=== PATIENT | female | born 1985 | race Caucasian/White ===

== ENCOUNTER 2016-02-14 09:46 | Emergency (ER) | payer OTHER, MEDICAID ==
[~2016-02-14] VITALS: Wt 58.0 kg
[~2016-02-14 09:46] MED LIST: BEN50 PO; PREN1TAB31 PO
--- NOTE | 2016-02-14 10:44 | RADRPT ---
PROCEDURE: US OB. CLINICAL INDICATION: Vaginal bleeding TECHNIQUE: Transabdominal and transvaginal views of the pelvis are available for review. COMPARISON: No prior studies are available for comparison. FINDINGS: There is a single intrauterine gestation with the crown-rump length measuring 0.4 cm, corresponding to a gestational age of 6 weeks and 1 day. There are Nabothian cysts in the cervix. The heart rate is noted at 105 bpm. The ovaries are normal in size and echogenicity. Normal Doppler flow is identified in both ovaries. The right ovary measures 2.9 x 2.1 x 2.0 cm. The left ovary measures 3.6 x 2.4 cm. There is no free fluid. RPTAT: AA IMPRESSION: Single live intrauterine with an estimated gestational age of 6 weeks and 1 day, based on ultrasound measurements. bradycardia and may be due to the early gestation. Follow-up is needed. ORIANA based on ultrasound measurements is 10/08/16. .Mu Vaughn MD, MD Date Time Electronically viewed and signed by .Mu Vaughn MD, on 02/14/2016 10:44 .S/
[2016-02-14 10:58] LABS: ADD UMIC YES; URINE BILIRUBIN (Dip) NEGATIVE (NEGATIVE); URINE BLOOD (Dip) TRACE (NEGATIVE); URINE COLOR LT. YELLOW (YELLOW); URINE GLUCOSE (Dip) NEGATIVE (NEGATIVE); URINE KETONES (Dip) NEGATIVE (NEGATIVE); URINE LEUKOCYTE ESTERASE (Dip) NEGATIVE (NEGATIVE); URINE NITRITE (Dip) NEGATIVE (NEGATIVE); URINE TOTAL PROTEIN (Dip) NEGATIVE (NEGATIVE); URINE UROBILINOGEN (Dip) 0.2 E.U./dL (0.1-1.0)
[2016-02-14 11:04] LABS: URINE RBCS 0-2 /HPF (0)
[2016-02-14 11:11] LABS: BASOPHILS % 0.3 % (0.0-2.0); EOSINOPHILS % 0.3 % (0.0-7.0); HEMATOCRIT 35.5 % (37.0-47.0); HEMOGLOBIN 11.7 g/dl (12.0-16.0); LYMPHOCYTES # 1.6 10^3/ul (0.8-2.9); LYMPHOCYTES % 18.6 % (15.0-51.0); MEAN CORPUSCULAR HEMOGLOBIN 26.3 pg (29.0-33.0); MEAN CORPUSCULAR VOLUME 79.7 fl (82.0-101.0); MEAN PLATELET VOLUME 7.5 fl (7.4-10.4); MONOCYTE # 0.7 10^3/ul (0.3-0.9); MONOCYTES % 7.8 % (0.0-11.0); NEUTROPHIL # 6.5 10^3/ul (1.6-7.5); PLATELET COUNT 339 10^3/UL (140-440); RED BLOOD COUNT 4.45 10^6/ul (4.20-5.40); RED CELL DISTRIBUTION WIDTH 20.3 % (11.5-14.5); UNCORRECTED WBC 8.9 10^3/ul (4.8-10.8); WHITE BLOOD COUNT 8.9 10^3/ul (4.8-10.8)
[2016-02-14 11:13] LABS: CONDITION 1; LH ANALYZER COMMENTS 1
--- NOTE | 2016-02-14 12:06 | ERD ---
ER Documentation Chief Complaint Date/Time DATE: 02/14/16 TIME: 12:02 Chief Complaint 8 wks spotting HPI 30-year-old female with no significant past medical history presents the ED as a A1 for pinkish vaginal spotting that occurred earlier today. States that she has slight achy type of generalized abdominal pain. Denies any fever, chills, nausea, vomiting, chest pain, shortness of breath, vaginal discharge. States that she does not have an G[facility]ER HELPER. States that she does have an appointment at a clinic on February 17, 2015. States that her LMP was on . ROS All systems reviewed and are negative except as per history of present illness. Medications Home Meds Active Scripts Diphenhydramine Hcl* (Benadryl*) 50 Mg Cap, 50 MG PO Q6 Y for ITCHING for 5 Days , CAP Prov:ISAI PATTEN 06/22/15 Reported Medications Vits #90-Iron Fum-FA ( Formula) 1 Each Tablet, 1 EACH PO DAILY 06/21/12 Allergies Allergies: Coded Allergies: azithromycin (Verified Allergy, Mild, RASH, 07/05/15) PMhx/Soc Medical and Surgical Hx: pt denies Surgical Hx History of Surgery: No Anesthesia Reaction: No Hx Neurological Disorder: No Hx Respiratory Disorders: No Hx Cardiac Disorders: No Hx Psychiatric Problems: No Hx Miscellaneous Medical Probl: Yes (VERTIGO) Hx Alcohol Use: No Hx Substance Use: No Hx Tobacco Use: No Smoking Status: Never smoker Physical Exam Vitals Vital Signs Date Time Temp Pulse Resp B/P Pulse Ox O2 Delivery O2 Flow Rate FiO2 02/14/16 12:25 120/78 02/14/16 09:49 98.6 98 20 127/72 100 Physical Exam Const: Kgx-iix-jyhvknzgm, well-nourished. In no acute distress. Head: Atraumatic, normocephalic Eyes: Normal Conjunctiva without injection. No purulent discharge. ENT: Normal external ear, nose. Moist oropharynx without tonsillar exudates. Non -erythematous pharynx. Uvula midline. No drooling. No trismus. Neck: No cervical midline tenderness. Full range of motion. No meningismus. No cervical lymphadenopathy. No JVD. Resp: Clear to auscultation bilaterally. No wheezing, rhonchi, rales, or crackles. No accessory muscle use. No retractions. Cardio: Regular rate and rhythm. No murmurs, rubs or gallops. Abd: Soft, nontender to palpation, non distended. Normal bowel sounds. No palpable masses. No rebound tenderness. No guarding. Negative McBurney's point. Negative psoas sign. Negative obturator sign. Skin: No petechiae or rashes Back: No midline tenderness. No CVA tenderness. Ext: No cyanosis, or edema. Neur: Awake and alert. Normal gait. Normal coordination. Psych: Normal Mood and Affect Result Diagram: 02/14/16 1040 Results 24 hrs Laboratory Tests Test 02/14/16 10:40 Basophils # 0.010^3/ul Basophils % 0.3% Beta HCG, Quantitative 36580.0mIU/ml Blood Morphology Comment Eosinophils # 0.010^3/ul Eosinophils % 0.3% Hematocrit 35.5% Hemoglobin 11.7g/dl Lymphocytes # 1.610^3/ul Lymphocytes % 18.6% Mean Corpuscular Hemoglobin 26.3pg Mean Corpuscular Hemoglobin Concent 33.0g/dl Mean Corpuscular Volume 79.7fl Mean Platelet Volume 7.5fl Monocytes # 0.710^3/ul Monocytes % 7.8% Neutrophils # 6.510^3/ul Neutrophils % 73.0% Nucleated Red Blood Cells # 0.010^3/ul Nucleated Red Blood Cells % 0.0/100WBC Platelet Count 62698^3/UL Red Blood Count 4.4510^6/ul Red Cell Distribution Width 20.3% Urine Bilirubin NEGATIVE Urine Clarity CLEAR Urine Color LT. YELLOW Urine Epithelial Cells OCCASIONAL Urine Glucose NEGATIVE% Urine Hemoglobin TRACE Urine Ketones NEGATIVE Urine Leukocyte Esterase NEGATIVE Urine Microscopic RBC 0-2/HPF Urine Microscopic WBC NONE SEEN/HPF Urine Nitrite NEGATIVE Urine Specific [place] 1.015 Urine Total Protein NEGATIVE Urine Urobilinogen 0.2 E.U./dL Urine pH 6.0 White Blood Count 8.910^3/ul Procedures/MDM 30-year-old female with no significant past medical history is a A1 presents to the ED complaining of slight pinkish vaginal spotting that occurred earlier this morning. Patient is afebrile and nontoxic-appearing. Patient has normal vital signs. An ultrasound, beta-hCG, CBC, type and RH, UA was ordered to evaluate patient. CBC: No evidence of severe infection or anemia Urine: No elevation in nitrites, leukocyte esterase, hematuria. No evidence of UTI Rh: O positive. No indication for Rhogam at this time. beta Hc.0 PROCEDURE: US OB. CLINICAL INDICATION: Vaginal bleeding TECHNIQUE: Transabdominal and transvaginal views of the pelvis are available for review. COMPARISON: No prior studies are available for comparison. FINDINGS: There is a single intrauterine gestation with the crown-rump length measuring 0.4 cm, corresponding to a gestational age of 6 weeks and 1 day. There are Nabothian cysts in the cervix. The heart rate is noted at 105 bpm. The ovaries are normal in size and echogenicity. Normal Doppler flow is identified in both ovaries. The right ovary measures 2.9 x 2.1 x 2.0 cm. The left ovary measures 3.6 x 2.4 cm. There is no free fluid. RPTAT: AA IMPRESSION: Single live intrauterine with an estimated gestational age of 6 weeks and 1 day, based on ultrasound measurements. bradycardia and may be due to the early gestation. Follow-up is needed. ORIANA based on ultrasound measurements is 10/08/16. Patient's bleeding symptoms have stabilized while in the department. Low suspicion for symptomatic anemia, ectopic , sepsis, PID, appendicitis, ovarian torsion, tubo-ovarian abscess, surgical abdomen, or other emergent conditions. Patient was educated that there is a risk for threatened . Patient to follow up with G[facility]ER HELPER in 2 days for further evaluation and treatment. Patient is to return sooner to the ED for any worsening symptoms. Patient's questions were answered. Patient understood and agreed with discharge plan. Departure Diagnosis: Primary Impression: Vaginal bleeding before 22 weeks gestation Condition: Stable Patient Instructions: Vaginal Bleed in Referrals: [facility] YOU HAVE RECEIVED A MEDICAL SCREENING EXAM AND THE RESULTS INDICATE THAT YOU DO NOT HAVE A CONDITION THAT REQUIRES URGENT TREATMENT IN THE EMERGENCY DEPARTMENT. FURTHER EVALUATION AND TREATMENT OF YOUR CONDITION CAN WAIT UNTIL YOU ARE SEEN IN YOUR DOCTORS OFFICE WITHIN THE NEXT 1-2 DAYS. IT IS YOUR RESPONSIBILITY TO MAKE AN APPOINTMENT FOR FOLOW-UP CARE. IF YOU HAVE A PRIMARY DOCTOR --you should call your primary doctor and schedule an appointment IF YOU DO NOT HAVE A PRIMARY DOCTOR YOU CAN CALL OUR PHYSICIAN REFERRAL HOTLINE AT IF YOU CAN NOT AFFORD TO SEE A PHYSICIAN YOU CAN CHOSE FROM THE FOLLOWING [facility] [address] [facility] [address] [place] [facility] [phone] [facility] [address] [facility] [phone] [facility]. [facility] [address] [facility]. [facility] YOU HAVE RECEIVED A MEDICAL SCREENING EXAM AND THE RESULTS INDICATE THAT YOU DO NOT HAVE A CONDITION THAT REQUIRES URGENT TREATMENT IN THE EMERGENCY DEPARTMENT. FURTHER EVALUATION AND TREATMENT OF YOUR CONDITION CAN WAIT UNTIL YOU ARE SEEN IN YOUR DOCTORS OFFICE WITHIN THE NEXT 1-2 DAYS. IT IS YOUR RESPONSIBILITY TO MAKE AN APPOINTMENT FOR FOLOW-UP CARE. IF YOU HAVE A PRIMARY DOCTOR --you should call your primary doctor and schedule and appointment IF YOU DO NOT HAVE A PRIMARY DOCTOR YOU CAN CALL OUR PHYSICIAN REFERRAL HOTLINE AT . IF YOU CAN NOT AFFORD TO SEE A PHYSICIAN YOU CAN CHOSE FROM THE FOLLOWING REPLACED BY [facility] INSTITUTIONS: [facility] [address] [place] [address] [facility] [address] [place] [address] [facility] [address] [place] [address] [facility] URGENT CARE/SPECIALTIES Additional Instructions: FOLLOW UP WITH YOUR GRAIN MILLER HELPER in 2 days. Return to this facility if you are not improving as expected. EVER GREEN PA-C Feb 14, 2016 12:06 EVER GREEN PA-C Feb 14, 2016 12:06
[2016-02-14 12:25] VITALS: BP 120/78
== END 2016-02-14 12:26 | disposition home or self-care (01) ==
LOC: FTE 09:46
DX: O20.9 Hemorrhage in early pregnancy, unspecified (principal); Z3A.01 Less than 8 weeks gestation of pregnancy
CPT/HCPCS: 36415; 76801; 76817; 81001; 84702; 85025; 86900; 86901; Z7502; 81003

== ENCOUNTER 2016-03-28 16:27 | Emergency (ER) | payer MEDICAID, OTHER ==
[~2016-03-28] VITALS: Wt 66.0 kg
[2016-03-28] MEDS ORDERED: SOD CHLORIDE 0.9% 1,000 ML IV STA (17:23)
[2016-03-28] MEDS ORDERED: morphine 2 MG INJ IV ONE (17:30)
[2016-03-28 18:03] LABS: BASOPHILS % 0.3 % (0.0-2.0); CONDITION 1; EOSINOPHILS % 0.6 % (0.0-7.0); HEMATOCRIT 34.1 % (37.0-47.0); HEMOGLOBIN 11.5 g/dl (12.0-16.0); LH ANALYZER COMMENTS 1; LYMPHOCYTES # 2.1 10^3/ul (0.8-2.9); LYMPHOCYTES % 26.7 % (15.0-51.0); MEAN CORPUSCULAR HEMOGLOBIN 28.3 pg (29.0-33.0); MEAN CORPUSCULAR HGB CONC 33.9 g/dl (32.0-37.0); MEAN CORPUSCULAR VOLUME 83.6 fl (82.0-101.0); MEAN PLATELET VOLUME 7.6 fl (7.4-10.4); MONOCYTE # 0.6 10^3/ul (0.3-0.9); NEUTROPHILS % 64.4 % (39.0-77.0); PLATELET COUNT 351 10^3/UL (140-440); RED BLOOD COUNT 4.08 10^6/ul (4.20-5.40); UNCORRECTED WBC 7.8 10^3/ul (4.8-10.8); WHITE BLOOD COUNT 7.8 10^3/ul (4.8-10.8)
[2016-03-28 18:09] LABS: POTASSIUM 3.6 mmol/L (3.5-5.1)
[2016-03-28 18:11] LABS: CREATININE 0.4 mg/dl (0.44-1.00)
[2016-03-28 18:12] LABS: ALBUMIN/GLOBULIN RATIO 1.17; BILIRUBIN,INDIRECT 0.1 mg/dl (0-1.1); BILIRUBIN,TOTAL 0.1 mg/dl (0.2-1.3); CALCIUM 9.5 mg/dl (8.4-10.2); TOTAL PROTEIN 7.4 g/dl (6.1-8.1)
[2016-03-28 18:32] LABS: ADD UMIC YES; URINE BILIRUBIN (Dip) NEGATIVE (NEGATIVE); URINE BLOOD (Dip) NEGATIVE (NEGATIVE); URINE COLOR LT. YELLOW (YELLOW); URINE GLUCOSE (Dip) NEGATIVE (NEGATIVE); URINE KETONES (Dip) NEGATIVE (NEGATIVE); URINE LEUKOCYTE ESTERASE (Dip) TRACE (NEGATIVE); URINE NITRITE (Dip) NEGATIVE (NEGATIVE); URINE TOTAL PROTEIN (Dip) NEGATIVE (NEGATIVE); URINE UROBILINOGEN (Dip) 0.2 E.U./dL (0.1-1.0)
[2016-03-28] MEDS ORDERED: ONDANSETRON 4 MG INJ IV STA (18:43)
[2016-03-28 18:45] LABS: SQUAMOUS EPITHELIAL CELL,UR MODERATE; URINE RBCS NONE SEEN /HPF (0)
--- NOTE | 2016-03-28 20:31 | ERD ---
ER Documentation Chief Complaint Date/Time DATE: 03/28/16 TIME: 20:28 Chief Complaint DECREASED MOVEMENT HPI This patient is a 30-year-old female with no significant medical history who is currently 11 weeks and LC 3 presenting to the emergency department for decreased movement ongoing for the past 3 days. The patient states 3 days ago the baby was moving significantly but now it is not moving at all. The patient denies any vaginal bleeding. The patient denies any vaginal discharge. The patient has had mild intermittent left-sided suprapubic cramping. The patient denies any nausea, vomiting, fevers, or other symptoms at this time. The patient's last bowel movement was 2 hours ago and was normal. There are no other symptoms to report at this time. ROS All systems reviewed and are negative except as per history of present illness. Medications Home Meds Active Scripts Diphenhydramine Hcl* (Benadryl*) 50 Mg Cap, 50 MG PO Q6 Y for ITCHING for 5 Days , CAP Prov:ISAI PATTEN 06/22/15 Reported Medications Vits #90-Iron Fum-FA ( Formula) 1 Each Tablet, 1 EACH PO DAILY 06/21/12 Allergies Allergies: Coded Allergies: azithromycin (Verified Allergy, Mild, RASH, 07/05/15) PMhx/Soc Medical and Surgical Hx: pt denies Surgical Hx History of Surgery: No Anesthesia Reaction: No Hx Neurological Disorder: No Hx Respiratory Disorders: No Hx Cardiac Disorders: No Hx Psychiatric Problems: No Hx Miscellaneous Medical Probl: Yes (VERTIGO) Hx Alcohol Use: No Hx Substance Use: No Hx Tobacco Use: No FmHx Noncontributory for chief complaint Physical Exam Vitals Vital Signs Date Time Temp Pulse Resp B/P Pulse Ox O2 Delivery O2 Flow Rate FiO2 03/28/16 16:41 99.2 96 20 124/64 99 Physical Exam INITIAL VITAL SIGNS: Reviewed by me. GENERAL: Alert and interactive. No acute distress. HEAD: Head is normocephalic and atraumatic. EYES: EOMI. No scleral icterus. No conjunctival injection. ENT: Moist mucosa. NECK: Supple. Full range of motion. RESPIRATORY: Normal respiratory effort. Clear breath sounds bilaterally. No wheezing, rales, or rhonchi. CV: Regular rate and rhythm. Normal S1 S2. No S3 or S4. No murmurs. ABDOMEN: Gravid abdomen, soft, non-distended, non-tender. No guarding. No rebound. No masses. : There is tenderness to palpation of the left suprapubic area. There is no CVA tenderness. EXTREMITIES: No deformity. SKIN: Warm and dry. NEUROLOGIC: Alert and oriented x 4. Speech is normal. Moves all extremities equally. No motor or sensory deficits noted. Result Diagram: 03/28/16 1745 03/28/16 1745 Results 24 hrs Laboratory Tests Test 03/28/16 17:44 03/28/16 17:45 Lipase 93U/L Alanine Aminotransferase (ALT/SGPT) 21IU/L Albumin 4.0g/dl Albumin/Globulin Ratio 1.17 Alkaline Phosphatase 67IU/L Anion Gap 17 Aspartate Amino Transf (AST/SGOT) 21IU/L Basophils # 0.010^3/ul Basophils % 0.3% Beta HCG, Quantitative 46496.0mIU/ml Blood Morphology Comment Blood Urea Nitrogen 6mg/dl Calcium Level 9.5mg/dl Carbon Dioxide Level 24mmol/L Chloride Level 102mmol/L Creatinine 0.40mg/dl Direct Bilirubin 0.00mg/dl Eosinophils # 0.010^3/ul Eosinophils % 0.6% Globulin 3.40g/dl Glucose Level 106mg/dl Hematocrit 34.1% Hemoglobin 11.5g/dl Indirect Bilirubin 0.1mg/dl Lymphocytes # 2.110^3/ul Lymphocytes % 26.7% Mean Corpuscular Hemoglobin 28.3pg Mean Corpuscular Hemoglobin Concent 33.9g/dl Mean Corpuscular Volume 83.6fl Mean Platelet Volume 7.6fl Monocytes # 0.610^3/ul Monocytes % 8.0% Neutrophils # 5.010^3/ul Neutrophils % 64.4% Nucleated Red Blood Cells # 0.010^3/ul Nucleated Red Blood Cells % 0.0/100WBC Platelet Count 74432^3/UL Potassium Level 3.6mmol/L Red Blood Count 4.0810^6/ul Red Cell Distribution Width 19.0% Sodium Level 139mmol/L Total Bilirubin 0.1mg/dl Total Protein 7.4g/dl Urine Bilirubin NEGATIVE Urine Clarity CLEAR Urine Color LT. YELLOW Urine Glucose NEGATIVE% Urine Hemoglobin NEGATIVE Urine Ketones NEGATIVE Urine Leukocyte Esterase TRACE Urine Microscopic RBC NONE SEEN/HPF Urine Microscopic WBC 0-2/HPF Urine Nitrite NEGATIVE Urine Specific [place] 1.020 Urine Squamous Epithelial Cells MODERATE Urine Total Protein NEGATIVE Urine Urobilinogen 0.2 E.U./dL Urine pH 6.0 White Blood Count 7.810^3/ul Current Medications Medications (Trade) Dose Ordered Sig/Mary Route PRN Reason Start Time Stop Time Status Last Admin Dose Admin Sodium Chloride (NS) 1,000 ml @ 1,000 mls/hr Q1H STAT IV 03/28/16 17:23 03/28/16 18:22 DC 03/28/16 17:51 Morphine Sulfate (morphine) 2 mg ONCE ONCE IV 03/28/16 17:30 03/28/16 17:31 DC 03/28/16 17:51 Ondansetron HCl (Zofran Inj) 4 mg ONCE STAT IV 03/28/16 18:43 03/28/16 18:44 DC 03/28/16 18:51 Procedures/MDM EMERGENCY DEPARTMENT COURSE / MEDICAL DECISION MAKING: This is a 30-year-old female who comes to the emergency room secondary to complaints of suprapubic cramping and decreased movement. The patient was given morphine and IV fluids in the department. On re-evaluation , the patient was feeling improved. Lab results reviewed and showed no significant acute abnormalities Radiology: [] The primary diagnosis is []. Secondary diagnosis is [] I have low suspicion for [] at this time. Discharge: I have discussed the lab results and diagnostic findings with the patient and answered any questions or concerns. The patient was discharged with a prescription for []. The patient was advised to followup with their PMD in 1- 2 days and to return to the Emergency Department if there are any new or worsening symptoms. The patient understood and agreed with the diagnosis, treatment and plan. The patient is stable for discharge at this time. Departure Diagnosis: Primary Impression: Decreased movement Condition: Stable Patient Instructions: Abdominal Pain, Early Referrals: [facility] Additional Instructions: No mas mejor en 2-3 louise, regresar. Mas peor en 24 horas, regresear rapidamente. Ir a doctor primario in 5-7 louise. Usar instrucciones cuando angelique medicamento. GOLDEN DODD PA-C Mar 28, 2016 20:31
--- NOTE | 2016-03-28 21:00 | RADRPT ---
PROCEDURE: US right upper quadrant CLINICAL INDICATION: Right upper quadrant pain. . TECHNIQUE: Multiple real-time images were acquired of the patient's right upper abdomen utilizing a high resolution transducer. COMPARISON: None available FINDINGS: Liver: Increased echogenicity compatible with hepatic steatosis with normal liver contour and no ev idence of mass lesion. Normal directional blood flow is seen within the patent main portal vein. Mil d hepatomegaly maximum dimension estimated at 19.7 cm . Gallbladder: Normal. No sonographic Zee's sign is reported. Common bile duct: Normal; 3.7 mm. There is no evidence for choledocholithiasis. Right Kidney: Normal; maximum length measured at approximately 13.4 cm. Pancreas: Visualized portions are normal. The tail is partially obscured by bowel gas. . RPTAT:HJJR IMPRESSION: 1. Mild hepatomegaly and hepatic steatosis. 2. Sonographically normal gallbladder. PROCEDURE: US OB. CLINICAL INDICATION: Right-sided abdominal pain. . TECHNIQUE: Transabdominal and transvaginal views of the pelvis are available for review. COMPARISON: 02/14/2016 FINDINGS: Interval growth of the previously seen a viable intrauterine gestation with the current estimations: [place]-rump length:6.54 cm heart rate:153 bpm Gestational sac:6.54 cm Ultrasound estimated gestational age:12 weeks 6 days, appropriate interval growth compared to the p rior examination. No subchorionic hemorrhage is demonstrated. No ovarian or adnexal mass lesion is seen. There is no free fluid. RPTAT:HJJR IMPRESSION: 1. Single live intrauterine with an estimated gestational age of 12-week-6-day as, approp riate interval growth compared to the study of 02/14/2016 with the estimated date of delivery 2016. 2. No evidence of subchorionic hemorrhage to explain the patient's provided history of vaginal blee ding. Physician Lj Date Time Electronically viewed and signed by Physician Lj on 03/28/2016 20:59 /
== END 2016-03-28 20:47 | disposition home or self-care (01) ==
LOC: FTE 16:27
DX: O36.8910 Maternal care for other specified fetal problems, first trimester, not applicable or unspecified (principal); Z3A.12 12 weeks gestation of pregnancy
CPT/HCPCS: 36415; 76705; 76801; 80053; 81001; 83690; 84702; 85025; 86900; 86901; 96374; 96375; J2270; J2405; J7030; Z7502; 81003

== ENCOUNTER 2016-05-10 05:29 | Emergency (ER) | payer OTHER ==
[~2016-05-10] VITALS: Ht 152.4 cm; Wt 65.5 kg
[2016-05-10 05:32] VITALS: Ht 152.4 cm; Wt 65.5 kg
== END 2016-05-10 06:50 | disposition left against medical advice (07) ==
LOC: FTE 05:29
DX: Z53.21 Procedure and treatment not carried out due to patient leaving prior to being seen by health care provider (principal)

== ENCOUNTER 2016-07-21 10:30 | Inpatient (IN) | payer MEDICAID ==
[~2016-07-21] VITALS: Ht 144.8 cm; Wt 69.0 kg
[2016-07-21] MEDS ORDERED: MAGNESIUM SULFATE 4 GM/100 ML 100 ML IV ONE (12:00)
[2016-07-21] MEDS: LACTATED RINGER'S 1,000 ML IV SCH (12:24)
[2016-07-21] MEDS: BETAMET NA PHOS/AC(6 MG/ML) 5ML INJ IM SCH (12:24)
[2016-07-21] MEDS ORDERED: GLUCOSE GEL 15 GRAM TUBE PO PRN ×2 (12:30)
[2016-07-21] MEDS ORDERED: DEXTROSE 50% 50 ML SYRINGE IV PRN ×2 (12:30)
[2016-07-21] MEDS ORDERED: GLUCOSE GEL 15 GRAM TUBE BUCCAL PRN (12:30)
[2016-07-21] MEDS ORDERED: GLUCAGON 1 MG INJ IM PRN (12:30)
[2016-07-21] MEDS: ACETAMINOPHEN 325 MG TAB PO PRN (12:44)
[2016-07-21 13:16] LABS: ADD SCAN DIFF NO
[2016-07-21 13:22] LABS: BASOPHILS % 0.3 % (0.0-2.0); EOSINOPHILS % 0.4 % (0.0-7.0); HEMATOCRIT 33.3 % (37.0-47.0); HEMOGLOBIN 11.2 g/dl (12.0-16.0); LYMPHOCYTES # 1.6 10^3/ul (0.8-2.9); LYMPHOCYTES % 21.1 % (15.0-51.0); MEAN CORPUSCULAR HEMOGLOBIN 31.1 pg (29.0-33.0); MEAN CORPUSCULAR HGB CONC 33.6 g/dl (32.0-37.0); MEAN CORPUSCULAR VOLUME 92.5 fl (82.0-101.0); MEAN PLATELET VOLUME 9.7 fl (7.4-10.4); MONOCYTE # 0.5 10^3/ul (0.3-0.9); MONOCYTES % 6.1 % (0.0-11.0); NEUTROPHIL # 5.4 10^3/ul (1.6-7.5); NEUTROPHILS % 71.6 % (39.0-77.0); PLATELET COUNT 299 10^3/UL (140-415); RED CELL DISTRIBUTION WIDTH 13.8 % (11.5-14.5); WHITE BLOOD COUNT 7.5 10^3/ul (4.8-10.8)
[2016-07-21] MEDS: MAGNESIUM SULFATE 20 GM/500 ML 500 ML IV SCH ×2 (13:23→22:31)
[2016-07-21] MEDS: ONDANSETRON 4 MG INJ IV PRN ×2 (13:35→22:27)
[2016-07-21 13:38] LABS: ALBUMIN 4.5 g/dl (3.3-4.9); ALBUMIN/GLOBULIN RATIO 1.36; BILIRUBIN,INDIRECT 0.1 mg/dl (0-1.1); BILIRUBIN,TOTAL 0.1 mg/dl (0.2-1.3); CALCIUM 9.2 mg/dl (8.4-10.2); CREATININE 0.37 mg/dl (0.44-1.00); TOTAL PROTEIN 7.8 g/dl (6.1-8.1)
[2016-07-21 13:39] LABS: ADD UMIC YES; UR BILIRUBIN (Dip) NEGATIVE (NEGATIVE); UR BLOOD (Dip) TRACE (NEGATIVE); UR CLARITY SLIGHTLY CLOUDY (CLEAR); UR COLOR LT. YELLOW (YELLOW); UR GLUCOSE (Dip) NEGATIVE (NEGATIVE); UR KETONES (Dip) NEGATIVE (NEGATIVE); UR LEUKOCYTE ESTERASE (Dip) NEGATIVE (NEGATIVE); UR NITRITE (Dip) NEGATIVE (NEGATIVE); UR TOTAL PROTEIN (Dip) NEGATIVE (NEGATIVE); UR UROBILINOGEN (Dip) 0.2 E.U./dL (0.1-1.0)
[2016-07-21 13:54] LABS: URINE RBCS 0-2 /HPF (0)
[2016-07-21] MEDS: ACCU-CHEK XX SCH ×2 (14:00→20:30)
[2016-07-21] MEDS: INSULIN ASPART [NOVOLOG] 3 ML PEN SC SCH ×2 (14:00→20:37)
--- NOTE | 2016-07-21 14:25 | HP ---
Date/Time of Note Date/Time of Note DATE: 07/21/16 TIME: 14:06 OB - History Hx of Present Free Text/Dictation .. This is a 31 years old female 5 para 3 EDC of October 01, 2016[facility] at 29 weeks and 5/7 referred from [facility] after ultrasound evaluation diagnosed short cervix 1.43 cm ,mild contraction no vaginal bleeding no liquid discharge patient denies feeling contractions, her current is complicated with gestational diabetes she also has a history of labor at 34 35 weeks. History of 1 normal delivery 2 previous section Estimated Due Date: Oct 01, 2016 : 5 Para: 3 Spontaneous : 1 Care: Good Care Ultrasounds: Normal mid trimester US Obstetrical Complications: Gestational Diabetes Past Family/Social History * Past Medical, Surgical, Family and Obstetric Histories reviewed from chart. Rubella: immune RPR/VDRL: Negative GBS Status: Unknown HBsAG: Negative OB Admission Exam Physical Exam HEENT: WNL Heart: Rhythm Normal Lungs: Clear, Equal Abdomen: WNL Extremities: Normal Reflexes: Normal Cervical Dilatation: other (1-1/2 cm) Station: Ballotable Membranes: Intact Heart Rate: 130's Accelerations: Accelerations Present Decelerations: No Decelerations Varibility: Moderate Contractions on Admission: >10 Minutes Apart Intensity: Mild Last 72 hourBlood Glucose Bedside Glucose - 72 Hours Test 07/21/16 12:10 Bedside Glucose 95mg/dL (70-220) Last 72 hours Lab Results CBC & BMP 07/21/16 12:20 Liver Function Test 07/21/16 12:20 Alanine Aminotransferase (ALT/SGPT) 24 Albumin 4.5 Alkaline Phosphatase 91 Aspartate Amino Transf (AST/SGOT) 23 Direct Bilirubin 0.00 Total Protein 7.8 OB Assessment/Plan Reason for admission: labor, other (Treatment for labor, with bedrest magnesium sulfate, she also will get,s betamethasone 2 doses 24 hours apart) Plan: Other (Treatment for short cervix to prevent labor) MISTY MURCIA MD Jul 21, 2016 14:16
[2016-07-21] MEDS ORDERED: ACETAMINOPHEN/CODEINE #3 TAB PO PRN (15:00)
[2016-07-21] MEDS: ACETAMINOPHEN/CODEINE #3 TAB PO PRN (19:07)
[2016-07-22] MEDS: LACTATED RINGER'S 1,000 ML IV SCH ×2 (01:11→14:42)
[2016-07-22] MEDS: ACETAMINOPHEN/CODEINE #3 TAB PO PRN ×2 (02:24→12:33)
[2016-07-22] MEDS: ACCU-CHEK XX SCH ×4 (07:30→20:05)
[2016-07-22] MEDS: MAGNESIUM SULFATE 20 GM/500 ML 500 ML IV SCH ×2 (09:13→19:59)
[2016-07-22] MEDS: DOCUSATE SODIUM 100 MG CAP PO SCH (09:22)
[2016-07-22] MEDS: FERROUS SULFATE (EC) 325 MG TAB PO SCH (09:22)
[2016-07-22] MEDS: MULTIVIT/MIN/FOLATE/IRON/PREN TAB PO SCH (09:22)
[2016-07-22] MEDS: INSULIN ASPART [NOVOLOG] 3 ML PEN SC SCH ×3 (10:00→20:19)
[2016-07-22] MEDS: BETAMET NA PHOS/AC(6 MG/ML) 5ML INJ IM SCH (12:21)
[2016-07-22] MEDS: ONDANSETRON 4 MG INJ IV PRN (16:24)
--- NOTE | 2016-07-22 17:42 | PN ---
Date/Time of Note Date/Time of Note DATE: 07/22/16 TIME: 17:33 OB Subjective Subjective Subjective Afebrile vital signs are stable resting in bed when I went to her room she was having dinner not complaining of contractions that she can feel only occasional contraction seen on monitor, had 2 or 3 episodes of vomiting this morning but now she is feeling better and she can eat her dinner, mag level has been down from 6.1 to 5.9. magnesium sulfate reduced to 1 g/h. MISTY MURCIA MD Jul 22, 2016 17:42
[2016-07-23] MEDS: LACTATED RINGER'S 1,000 ML IV SCH (02:33)
[2016-07-23] MEDS: ACETAMINOPHEN 325 MG TAB PO PRN (02:34)
[2016-07-23] MEDS: ACCU-CHEK XX SCH ×4 (08:00→20:50)
[2016-07-23] MEDS: MULTIVIT/MIN/FOLATE/IRON/PREN TAB PO SCH (09:29)
[2016-07-23] MEDS: FERROUS SULFATE (EC) 325 MG TAB PO SCH (09:29)
[2016-07-23] MEDS: DOCUSATE SODIUM 100 MG CAP PO SCH (09:29)
[2016-07-23] MEDS: INSULIN ASPART [NOVOLOG] 3 ML PEN SC SCH ×3 (11:15→19:51)
--- NOTE | 2016-07-23 19:41 | QN ---
Documentation Comment Patient is 5 para 3 at 30 weeks of gestation Gestational diabetes diet-controlled Admitted with short cervix measuring 1.3 cm Patient status post magnesium sulfate, s/p betamethasone Patient is not reporting any contractions, no vaginal bleeding and no leaking fluid She reports positive movement Continue with present management BRIDGET JACK MD Jul 23, 2016 19:41
[2016-07-23] MEDS: ACETAMINOPHEN/CODEINE #3 TAB PO PRN (20:26)
[2016-07-24] MEDS: ACCU-CHEK XX SCH ×4 (07:54→19:00)
[2016-07-24] MEDS: DOCUSATE SODIUM 100 MG CAP PO SCH (09:20)
[2016-07-24] MEDS: FERROUS SULFATE (EC) 325 MG TAB PO SCH (09:20)
[2016-07-24] MEDS: MULTIVIT/MIN/FOLATE/IRON/PREN TAB PO SCH (09:20)
[2016-07-24] MEDS: INSULIN ASPART [NOVOLOG] 3 ML PEN SC SCH ×3 (10:00→20:05)
--- NOTE | 2016-07-24 10:11 | PN ---
Date/Time of Note Date/Time of Note DATE: 07/24/16 TIME: 10:09 OB Subjective Subjective Subjective Patient is resting in bed her vital signs are stable not complaining of cramping or contractions ultrasound requested to check changes on cervical length heart rate appropriate for gestational age. MISTY MURCIA MD Jul 24, 2016 10:11
--- NOTE | 2016-07-24 12:00 | RADRPT ---
PROCEDURE: Limited obstetric ultrasound CLINICAL INDICATION: Pain, short cervix TECHNIQUE: Multiple transverse and longitudinal grayscale images of the pelvis were obtained hdez sabdominally and transvaginally.. COMPARISON: None FINDINGS: The cervix is short with a length of 1.25 cm. There is evidence of funneling with debris with the in ternal os dilated up to 1.7 cm. There is a single viable intrauterine gestation. Cardiac activity is present with 156 beats per min pauma. There is a transverse maternal left presentation. The placenta is anterior. There is no evidence for an abruption or placenta previa. RPTAT: AA IMPRESSION: Cervix length measures 1.25 cm. Funneling with internal debris. Internal os dilated to 1.7 cm. .Mu Vaughn MD, Date Time Electronically viewed and signed by .Mu Vaughn MD, on 07/24/2016 12:00 .S/
[2016-07-24] MEDS ORDERED: MAGNESIUM SULFATE 4 GM/100 ML 100 ML IVPB ONE (15:00)
[2016-07-24] MEDS: MAGNESIUM SULFATE 20 GM/500 ML 500 ML IV SCH (15:09)
[2016-07-24] MEDS: LACTATED RINGER'S 1,000 ML IV SCH (15:10)
[2016-07-24] MEDS: metroNIDAZOLE 500 MG TAB PO SCH ×2 (17:00→21:15)
[2016-07-24] MEDS: ACETAMINOPHEN/CODEINE #3 TAB PO PRN (19:03)
[2016-07-24] MEDS: ONDANSETRON 4 MG INJ IV PRN (19:25)
[2016-07-25] MEDS: MAGNESIUM SULFATE 20 GM/500 ML 500 ML IV SCH (01:43)
[2016-07-25] MEDS: LACTATED RINGER'S 1,000 ML IV SCH ×2 (02:12→16:53)
[2016-07-25] MEDS: ACCU-CHEK XX SCH ×4 (07:44→20:31)
[2016-07-25] MEDS: INSULIN ASPART [NOVOLOG] 3 ML PEN SC SCH ×3 (10:00→19:56)
[2016-07-25] MEDS: MULTIVIT/MIN/FOLATE/IRON/PREN TAB PO SCH (10:10)
[2016-07-25] MEDS: DOCUSATE SODIUM 100 MG CAP PO SCH (10:10)
[2016-07-25] MEDS: metroNIDAZOLE 500 MG TAB PO SCH ×3 (10:11→20:50)
[2016-07-25] MEDS: FERROUS SULFATE (EC) 325 MG TAB PO SCH (10:11)
[2016-07-25] MEDS: NIFEdipine 10 MG CAP PO SCH ×2 (12:14→18:08)
--- NOTE | 2016-07-25 14:58 | CONS ---
DATE OF ADMISSION: 07/21/2016 DATE OF CONSULTATION: 07/25/2016 TYPE OF CONSULTATION: NICU REQUESTING PHYSICIAN: Henry Rodriguez MD REASON FOR CONSULTATION: The patient admitted on 07/21/2016 for premature labor. The patient is admitted on 07/21/2016 from clinic because of a short cervix, was initially on magnesium and subsequently had again contractions and was restarted on magnesium. She received 2 doses of betamethasone. She also has gestational diabetes, diet controlled. Presently, she has d eveloped a urinary tract infection with Gardnerella and is also on Flagyl. She is a 31-year-old 5, para 3, AB 1. Gestation is 30 and 2/7 weeks. Previous last was 35 weeks and stayed in the hospital for less than a week. The other children and this child are well. I spoke to Mrs. Isaacs extensively about what to expect as far as prematurity of the baby at this po int including NICU admission and length of stay, respiratory problems and the kind of support that b allie needed, vascular access such as umbilical catheters, arterial lines and a percutaneously inserte d central catheter, feeding difficulties requiring gavage feeding and supported with TPN, apnea of p rematurity, hyperbilirubinemia, eye problems, intracranial hemorrhage, long-term neurodevelopmental problems as the risks. She had a good understanding of what I told her and asked good questions, al l of which I could answer. Thank you for allowing me to assist in the care of this family. Please call when clinical care as n eeded. Dictated By: SONIYA SIERRA/NTS Conf#: [id number] DID#: [id number]
[2016-07-25] MEDS: ACETAMINOPHEN 325 MG TAB PO PRN (19:58)
--- NOTE | 2016-07-25 20:47 | PERINOTE ---
Date/Time of Note Date/Time of Note DATE: 07/25/16 TIME: 19:17 Assessment/Recommendations Other Assessments This is a patient with a stable short cervix without evident UCs EGA is 30+weeks Recommendations: Patient requests to go home. I would consider this if she can continue with reduced activity at home and if she can return promptly if matters change. I encouraged her to discuss this wither her Ob doctor. OB Subjective Free Text/Dictaton Patient admitted with short cervix, recent US demonstrated no interval change in cervical length. HD# 5 IUP @ 30W2D Complaints/Overnight events Denies UCs while in bed Current Medications Current Medications Prenat Multivit/ Tow Truck Driver/Iron/Folic Ac ( S) 1 tab DAILY PO Last administered on 07/25/16 10:10; Admin Dose 1 TAB; Start 07/22/16 at 09:00 Ferrous Sulfate (Ferrous Sulfate (Ec)) 325 mg DAILY PO Last administered on 10:11; Admin Dose 325 MG; Start 07/22/16 at 09:00 Docusate Sodium (Colace) 100 mg DAILY PO Last administered on 07/25/16 10:10; Admin Dose 100 MG; Start 07/22/16 at 09:00 Acetaminophen (Tylenol Tab) 650 mg Q4H PRN PO PAIN AND OR ELEVATED TEMP Last administered on 07/23/16 02:34; Admin Dose 650 MG; Start 07/21/16 at 12:00 Diagnostic Test (Pha) (Accu-Chek) 1 ea FBSPP XX Last administered on 07/25/16 14:46; Admin Dose 1 EA; Start 07/21/16 at 14:00 Miscellaneous Information 1 ea NOTE XX ; Start 07/21/16 at 12:30 Glucose (Glutose) 15 gm Q15M PRN PO DECREASED GLUCOSE; Start 07/21/16 at 12:30 Glucose (Glutose) 22.5 gm Q15M PRN PO DECREASED GLUCOSE; Start 07/21/16 at 12: 30 Dextrose (D50w Syringe) 25 ml Q15M PRN IV DECREASED GLUCOSE; Start 07/21/16 at 12:30 Dextrose (D50w Syringe) 50 ml Q15M PRN IV DECREASED GLUCOSE; Start 07/21/16 at 12:30 Glucagon (Glucagen) 1 mg Q15M PRN IM DECREASED GLUCOSE; Start 07/21/16 at 12:30 Glucose (Glutose) 15 gm Q15M PRN BUCCAL DECREASED GLUCOSE; Start 07/21/16 at 12 :30 Ondansetron HCl (Zofran Inj) 4 mg Q6H PRN IV NAUSEA AND/OR VOMITING Last administered on 07/24/16 19:25; Admin Dose 4 MG; Start 07/21/16 at 13:30 Acetaminophen/ Codeine Phosphate 2 tab 2 tab Q4H PRN PO PAIN Last administered on 07/24/16 19:03; Admin Dose 2 TAB; Start 07/21/16 at 19:00 Lactated Ringer's (Lr) 1,000 ml @ 75 mls/hr [id number] IV Last administered on 16:53; Admin Dose 75 MLS/HR; Start 07/24/16 at 15:00 Metronidazole (Flagyl) 500 mg TID PO Last administered on 07/25/16 14:46; Admin Dose 500 MG; Start 07/24/16 at 16:00 Nifedipine (Procardia) 20 mg Q6 PO Last administered on 07/25/16 18:08; Admin Dose 20 MG; Start 07/25/16 at 12:00 OB Admission Exam Last 72 hourBlood Glucose Bedside Glucose - 72 Hours Test 07/22/16 20:02 07/23/16 07:58 07/23/16 11:17 07/23/16 15:21 Bedside Glucose 144mg/dL (70-220) 120mg/dL (70-220) 115mg/dL (70-220) 109mg/dL (70-220) Test 07/23/16 19:31 07/24/16 07:43 07/24/16 11:16 07/24/16 19:13 Bedside Glucose 115mg/dL (70-220) 97mg/dL (70-220) 101mg/dL (70-220) 113mg/dL (70-220) Test 07/25/16 07:50 07/25/16 13:32 Bedside Glucose 112mg/dL (70-220) 121mg/dL (70-220) Last 72 hours Lab Results Magnesium Level Test 07/23/16 05:30 07/24/16 00:00 07/25/16 05:11 Magnesium Level 4.9 H 5.1 *H 5.4 *H Copies To: CC: MISTY MURCIA MD, MARIE H MD Jul 25, 2016 19:21
[2016-07-26] MEDS: NIFEdipine 10 MG CAP PO SCH ×2 (00:21→06:03)
[2016-07-26] MEDS: LACTATED RINGER'S 1,000 ML IV SCH (05:12)
[2016-07-26] MEDS: ACCU-CHEK XX SCH (08:15)
--- NOTE | 2016-07-26 08:17 | PN ---
Date/Time of Note Date/Time of Note DATE: 07/26/16 TIME: 08:14 OB Subjective Subjective Subjective Afebrile vital signs are stable, resting in bed no complaint of contractions few observed on the monitor, we will continue expecting management ,currently she is on Procardia 20 mg every 6 hours . MISTY MURCIA MD Jul 26, 2016 08:17
--- NOTE | 2016-07-26 08:39 | PD.PPDC ---
REINSURANCE CLERK Discharge Instruction Condition Patient Condition: Good Diet Diet: Resume Regular Diet Activity/Restrictions Activity: Bedrest May be up to bathroom May be up for meals May Shower Restrictions: No Exercising No Lifting No Driving No Sexual Activity Nothing in the Vagina No [place] No Tampons, douche Follow-up Follow-up with Physician: 2, Day/Days Provider Information: Appointment perinatology clinic twice per week first appointment 2 days Return to clinic for INSPECTOR FILTER TIP Instructions: Fever greater than 101 Chills Worsening abdominal pain Excessive Vaginal Bleeding More than 2 pads per hour Unable to tolerate diet MISTY MURCIA MD Jul 26, 2016 08:39
--- NOTE | 2016-07-26 08:50 | DS ---
Date/Time of Note Date/Time of Note DATE: 07/26/16 TIME: 08:43 Discharge Summary Admission/Discharge Info Admit Date/Time Jul 21, 2016 at 10:30 Discharge Date/Time July 26, 2016 at 08:40 Final Diagnosis approximately 29-30 weeks short cervical length, history of deliveries at 34-35 week, discharge home per perinatology recommendation, will be followed as an outpatient at perinatology clinic Patient Condition: Good Consults Perinatologist Procedures Observation for short cervix Hx of Present Illness 30 weeks with history of deliveries has short cervix, was admitted to monitor cervical changes there has been no change since admission she is discharged home per perinatologist recommendation will be followed at the perinatology clinic twice per week Hospital Course Uneventful no cervical change Home Meds Active Scripts Diphenhydramine Hcl* (Benadryl*) 50 Mg Cap, 50 MG PO Q6 Y for ITCHING for 5 Days , CAP Prov:SANDORISAI OLIVIA 06/22/15 Reported Medications Vits #90-Iron Fum-FA ( Formula) 1 Each Tablet, 1 EACH PO DAILY 06/21/12 Primary Care Provider Care Physician No Primary Time spent on discharge: < 30 minutes Pending Labs Laboratory Tests Test 07/25/16 13:32 07/25/16 20:06 07/26/16 08:38 Bedside Glucose 121mg/dL (70-220) 106mg/dL (70-220) 93mg/dL (70-220) MISTY MURCIA MD Jul 26, 2016 08:50
[2016-07-26] MEDS: FERROUS SULFATE (EC) 325 MG TAB PO SCH (09:24)
[2016-07-26] MEDS: MULTIVIT/MIN/FOLATE/IRON/PREN TAB PO SCH (09:25)
[2016-07-26] MEDS: metroNIDAZOLE 500 MG TAB PO SCH (09:25)
[2016-07-26] MEDS: DOCUSATE SODIUM 100 MG CAP PO SCH (09:25)
== END 2016-07-26 11:00 | disposition home or self-care (01) | DRG 778 ==
LOC: OBG 10:30
PROVIDERS: ADMIT Obstetrics & Gynecology; ATTEND Obstetrics & Gynecology
DX: O60.03 Preterm labor without delivery, third trimester (principal); O26.873 Cervical shortening, third trimester; O23.43 Unspecified infection of urinary tract in pregnancy, third trimester; O24.410 Gestational diabetes mellitus in pregnancy, diet controlled; B96.89 Other specified bacterial agents as the cause of diseases classified elsewhere; O09.213 Supervision of pregnancy with history of pre-term labor, third trimester; Z3A.29 29 weeks gestation of pregnancy
CPT/HCPCS: 76817; 80053; 81001; 82962; 83036; 83735; 85025; 86900; 86901; 87086; J0702; J1815; J2405; J3475; J7120

== ENCOUNTER 2016-08-15 22:33 | Inpatient (IN) | payer OTHER ==
[~2016-08-15] VITALS: Ht 147.3 cm; Wt 68.9 kg
[2016-08-15 22:49] VITALS: Ht 147.3 cm; Wt 68.9 kg
[2016-08-15 22:50] VITALS: BP 118/72; PULSE 98; RESP 18
[2016-08-15] MEDS ORDERED: PRO20 PO (22:54)
[2016-08-15] MEDS ORDERED: PRENAT PO (22:54)
[2016-08-16] MEDS ORDERED: LACTATED RINGER'S 1,000 ML IV ONE
--- NOTE | 2016-08-16 00:59 | RADRPT ---
PROCEDURE: Obstetrical ultrasound greater than 14 weeks CLINICAL INDICATION: labor. Evaluate cervical length TECHNIQUE: Real time sonographic imaging of the gravid uterus is performed transabdominally and mu ltiple static ca scale and Doppler images are submitted for review as are measurements. The image s are reviewed on the PACS. COMPARISON: 07/24/2016 FINDINGS: The cervical os again demonstrates funneling with a decreased cervical length of 1.5 cm. The length was 1.3 cm on the prior study of 07/24/2016.. The debris within the internal cervical os is seen pr eviously is not visualized There is a single living intrauterine gestation in cephalic presentation. The heart beat is estimated at 144 bpm. Placenta is anterior and grade2. There is no evidence of placenta previa or abruption. anatomic survey is performed and shows no abnormality, the three-vessel cord and cord insertio n are unremarkable. RPTAT:HJJR IMPRESSION: 1. Single viable intrauterine gestation in cephalic presentation the cervix estimated at 1.5 cm, pre viously measured at 1.3 cm on the study of 07/24/2016. 2. Funneling of the internal cervical os is again noted but the debris seen on the prior ultrasound is not evident. 3. Anterior grade II placenta without placenta previa. Physician Lj Date Time Electronically viewed and signed by Physician Lj on 08/16/2016 00:59 /
[2016-08-16] MEDS ORDERED: ACETAMINOPHEN 500 MG TAB PO STA (01:13)
[2016-08-16] MEDS ORDERED: ACETAMINOPHEN/CODEINE #3 TAB PO ONE ×2 (01:30→13:30)
[2016-08-16] MEDS ORDERED: LACTATED RINGER'S 1,000 ML IV SCH (02:13)
[2016-08-16] MEDS ORDERED: TERBUTALINE 1 MG/ML INJ SC ONE (03:30)
[2016-08-16] MEDS ORDERED: MAGNESIUM SULFATE 20 GM/500 ML 500 ML IV SCH (05:43)
[2016-08-16] MEDS ORDERED: DOCUSATE SODIUM 100 MG CAP PO PRN (06:00)
[2016-08-16] MEDS ORDERED: MAGNESIUM SULFATE 4 GM/100 ML 100 ML IV ONE (06:00)
[2016-08-16] MEDS ORDERED: BETAMET NA PHOS/AC(6 MG/ML) 5ML INJ IM ONE (06:00)
[2016-08-16] MEDS: LACTATED RINGER'S 1,000 ML IV SCH ×3 (06:04→16:17)
--- NOTE | 2016-08-16 06:15 | HP ---
Date/Time of Note Date/Time of Note DATE: 08/16/16 TIME: 06:01 OB - History Hx of Present Free Text/Dictation 31 y.o. A1 with an IUP at 33w 3d c/o contractions.Pt was admitted for a few day mid July with UC's and a short cervix of 1.3 with funneling. She received steroids, was on magnesium and then sent home on Procardia. No bleeding or leaking. Good movement. Chief Complaint: Contractions. Estimated Due Date: Oct 01, 2016 : 5 Para: 3 Therapeutic : 1 Care: Good Care Ultrasounds: Normal mid trimester US Obstetrical Complications: Gestational Diabetes (Diet controlled.) Medical Complications: None Past Family/Social History * Past Medical, Surgical, Family and Obstetric Histories reviewed from chart. Blood Type: O+ Rubella: immune RPR/VDRL: Negative GBS Status: Unknown HBsAG: Negative OB Admission Exam Vital Signs Vital Signs Vital Signs Date Time Temp Pulse Resp B/P Pulse Ox O2 Delivery O2 Flow Rate FiO2 08/15/16 22:50 97.9 98 18 118/72 Room Air Physical Exam HEENT: WNL Lungs: Clear Abdomen: WNL Extremities: Normal Reflexes: Normal Cervical Dilatation: None Effacement: Other (1.5 cm long with funneling( compared to prior exam that was 1.3 cm with funneling).) Membranes: Intact Heart Rate: 150's (With accels to 170 bpm. No decels.) Accelerations: Accelerations Present Decelerations: No Decelerations Varibility: Moderate Contractions on Admission: 6-10 Minutes Apart Intensity: Moderate OB Assessment/Plan Reason for admission: labor Other Assessment: Short cervix. Gestational DM. Plan: Other (Tocolysis with magnesium as her Procardia has been inadequate recently and the terbutaline helped some but not completelyu.) Other plan: One rescue dose of steroids. NIA CAMPO MD Aug 16, 2016 06:12
[2016-08-16] MEDS: PRENATAL VITAMIN PO SCH (08:51)
[2016-08-16] MEDS: MAGNESIUM SULFATE 20 GM/500 ML 500 ML IV SCH ×2 (16:07→19:13)
[2016-08-16] MEDS: NIFEdipine 10 MG CAP PO SCH (23:34)
[2016-08-17] MEDS: LACTATED RINGER'S 1,000 ML IV SCH ×3 (05:11→21:43)
[2016-08-17] MEDS: NIFEdipine 10 MG CAP PO SCH ×3 (05:47→17:55)
--- NOTE | 2016-08-17 07:47 | RADRPT ---
PROCEDURE: CERVICAL LENGTH ULTRASOUND CLINICAL INDICATION: Short cervix. TECHNIQUE: Trans-vaginal imaging of the cervical canal was performed utilizing ca-scale imaging. Sagittal and transverse images were obtained. Trans-abdominal images were also obtained. The lawson ges were reviewed on a PACS workstation. COMPARISON: None. FINDINGS: There is a single live intrauterine . heart rate is 134 beats per minute. Position is transverse with head to maternal right and placenta is left lateral grade 1. There is no placenta previa. The cervix is closed with a length of 2.5 cm. IMPRESSION: 1. Cervical length is 2.5 cm. RPTAT: QQ .Mayo Leon MD, MD Date Time Electronically viewed and signed by .Mayo Leon MD, MD on 08/17/2016 07:47 .R/
[2016-08-17] MEDS: PRENATAL VITAMIN PO SCH (10:05)
[2016-08-17] MEDS ORDERED: ASA/ACETAMINOPHEN/CAFF TAB PO ONE (10:30)
--- NOTE | 2016-08-17 10:34 | PN ---
Date/Time of Note Date/Time of Note DATE: 08/17/16 TIME: 10:25 OB Subjective Subjective Subjective Today she is 33 weeks and 4 days, resting in bed complaining of migraine headache which she has a history of, response to EXCEDRIN, her ultrasound report for cervical length to day was 2.5cm she has no contraction, mag sulfate was stopped at 6:00 this morning she is back on Procardia 20 mg every 6 hours, her fasting blood sugar this morning was 98, consult with perinatologist requested. MISTY MURCIA MD Aug 17, 2016 10:34
[2016-08-18] MEDS: LACTATED RINGER'S 1,000 ML IV SCH ×2 (05:43→09:13)
[2016-08-18] MEDS: NIFEdipine 10 MG CAP PO SCH ×5 (05:59→23:55)
[2016-08-18] MEDS: PRENATAL VITAMIN PO SCH (09:13)
--- NOTE | 2016-08-18 12:51 | QN ---
Documentation Comment Resting in bed vital signs stable has occasional contraction mostly not felt , recent ultrasound report for cervical length indicating the length is 2-1/2 cm , will continue close observation for any cervical change. MISTY MURCIA MD Aug 18, 2016 12:51
[2016-08-19] MEDS: NIFEdipine 10 MG CAP PO SCH ×3 (06:10→18:02)
[2016-08-19] MEDS: PRENATAL VITAMIN PO SCH (09:26)
--- NOTE | 2016-08-20 01:06 | QN ---
Documentation Comment Denies any complaint. Denies any contraction, leaking of fluid or vaginal bleeding or pelvic pressure. Physical examination: General appearance: Alert and oriented 4.Comfortable. NST: Category 1 Patient received diabetic education. On nifedipine for short cervix and labor . Doing well Asymptomatic Blood sugars well controlled Status post steroid 2 courses. Rescue steroid completed on August 16, due to short cervix and funneling Continue expectant management as above Follow-up with perinatologist CRISTOBAL YING MD Aug 20, 2016 01:05
== END 2016-08-19 20:25 | disposition home or self-care (01) | DRG 778 ==
LOC: OBT 22:33 → L-D 22:34 → OBT 08-16 06:25 → OBG 08-16 06:26
PROVIDERS: ADMIT Obstetrics & Gynecology; ATTEND Obstetrics & Gynecology
DX: O60.03 Preterm labor without delivery, third trimester (principal); O26.873 Cervical shortening, third trimester; O24.410 Gestational diabetes mellitus in pregnancy, diet controlled; Z3A.33 33 weeks gestation of pregnancy
CPT/HCPCS: 36415; 76817; 82962; 83735; 96360; 96361; 96372; G0463; J0702; J3105; J3475; J7120

== ENCOUNTER 2016-08-27 21:18 | Outpatient (CLI) | payer OTHER ==
[~2016-08-27] VITALS: Ht 147.3 cm; Wt 70.8 kg
[~2016-08-27 21:18] MED LIST changes: -BEN50 PO; -PREN1TAB31 PO; +PRENAT PO; +PRO20 PO
[2016-08-27 21:42] VITALS: Ht 147.3 cm; Wt 70.8 kg
[2016-08-27 21:43] VITALS: BP 114/68; PULSE 99; RESP 18
[2016-08-28 00:09] LABS: ADD UMIC YES; UR AMORPHOUS CRYSTAL FEW /HPF (NONE SEEN); UR ASCORBIC ACID NEGATIVE (NEGATIVE); UR BACTERIA MODERATE /HPF (NONE SEEN); UR BILIRUBIN (Dip) NEGATIVE (NEGATIVE); UR BLOOD (Dip) NEGATIVE (NEGATIVE); UR CLARITY SLIGHTLY CLOUDY (CLEAR); UR COLOR YELLOW (YELLOW); UR GLUCOSE (Dip) NEGATIVE (NEGATIVE); UR KETONES (Dip) NEGATIVE (NEGATIVE); UR LEUKOCYTE ESTERASE (Dip) 2+ Leu/ul (NEGATIVE); UR NITRITE (Dip) NEGATIVE (NEGATIVE); UR RBC 3 /HPF (0-5); UR SPECIFIC GRAVITY (Dip) 1.004 (1.003-1.030); UR SQUAMOUS EPITHELIAL CELL MODERATE /HPF (FEW); UR TOTAL PROTEIN (Dip) NEGATIVE (NEGATIVE); UR UROBILINOGEN (Dip) NEGATIVE (NEGATIVE)
--- NOTE | 2016-08-28 00:33 | RADRPT ---
PROCEDURE: ULTRASOUND BIOPHYSICAL PROFILE CLINICAL INDICATION: 31-year-old female with ruptured membranes for viability. TECHNIQUE: Multiple sonographic images were obtained in order to perform a biophysical profile The images were reviewed on a PACS workstation. COMPARISON: Ultrasound OB February 14, 2016 ultrasound OB limited August 17, 2016. FINDINGS: There is a single viable intrauterine gestation. There is a vertex presentation. Cardiac activity i s present at 150 beats per minute. The placenta is anterior. The results of the biophysical profile are as follows: breathing movement = 2/2 Gross body movement = 2/2 tone = 2/2 Qualitative amniotic fluid volume = 2/2 Amniotic fluid index equals 9.8 cm. This yields a biophysical profile score of 8/8. IMPRESSION: Biophysical profile score is 8/8. .Fernando Estevez MD, Date Time Electronically viewed and signed by .Fernando Estevez MD, on 08/28/2016 00:32 .M/
--- NOTE | 2016-08-28 01:13 | PN ---
Triage Information Date/Time 08/28/99 Weeks of Gestation [id number] : 5 Para: 3 Diabetes: none, gestational Diabetes management: diet controlled Hypertention: none Additional information decrease FM leaking fluid ? Objective Vital Signs Date Time Temp Pulse Resp B/P Pulse Ox O2 Delivery O2 Flow Rate FiO2 08/27/16 21:43 98.5 99 18 114/68 Room Air Heart Rate: 130's Contractions: >10 Minutes Apart Exam VE 1cm/30%/-3 Results/Medications Results 24 hrs Laboratory Tests Test 08/27/16 22:54 Urine Color YELLOW Urine Clarity SLIGHTLY CLOUDY A Urine pH 7.0 Urine Specific [place] 1.004 Urine Ketones NEGATIVE Urine Nitrite NEGATIVE Urine Bilirubin NEGATIVE Urine Urobilinogen NEGATIVE Urine Leukocyte Esterase 2+ H Urine Microscopic RBC 3 Urine Microscopic WBC 39 H Urine Squamous Epithelial Cells MODERATE Urine Amorphous Crystals FEW A Urine Bacteria MODERATE Urine Hemoglobin NEGATIVE Urine Glucose NEGATIVE Urine Total Protein NEGATIVE Membranes Rupture NEGATIVE Medications Rx cephalexin 500mg q6hr #28 Imaging Results ROM plus neg BPP 8/8 TULIO 9.3 Assessment/Plan IUP 35w4d UTI DFM resoluted FREDDY CARMONA MD Aug 28, 2016 01:10
--- NOTE | 2016-08-28 01:55 | TRIAGE ---
OB Triage Datetime Report Generated by CPN: 08/28/2016 01:54 Datetime: 08/28/2016 00:52 Labor Evaluation Frequency: 3-7 Monitor Mode: External Duration (sec)2399: 80 Quality: Mild Pattern: Normal: <= 5 Contractions in 10 Minutes Resting Tone [place]: Relaxed Heart Rate FHR Baseline Rate: 135 Monitor Mode: External US FHR Baseline Changes: No Baseline Change Variability: Moderate 6-25 bpm Accelerations: 15X15 Decelerations: None Category: Category I Datetime: 08/28/2016 00:00 Labor Evaluation Frequency: IRREGULAR Monitor Mode: External Duration (sec)2399: 80 Quality: Mild Pattern: Normal: <= 5 Contractions in 10 Minutes Resting Tone [place]: Relaxed Heart Rate FHR Baseline Rate: 145 Monitor Mode: External US FHR Baseline Changes: No Baseline Change Variability: Moderate 6-25 bpm Accelerations: 15X15 Decelerations: None Category: Category I Datetime: 08/27/2016 23:00 Labor Evaluation Frequency: IRREGULAR Monitor Mode: External Duration (sec)2399: 80 Quality: Mild Pattern: Normal: <= 5 Contractions in 10 Minutes Resting Tone [place]: Relaxed Heart Rate FHR Baseline Rate: 135 Monitor Mode: External US FHR Baseline Changes: No Baseline Change Variability: Moderate 6-25 bpm Accelerations: 15X15 Decelerations: None Category: Category I Datetime: 08/27/2016 22:54 Vaginal Exam Dilatation (cms): 1.0 Effacement (%): 30 Station: -3 Exam By: Mya GALARZA RN Vaginal Bleeding: None Cervix, Consistency: Firm Cervix, Position: Posterior Datetime: 08/27/2016 22:00 Labor Evaluation Frequency: IRREGULAR Monitor Mode: External Duration (sec)2399: 80 Quality: Mild Pattern: Normal: <= 5 Contractions in 10 Minutes Resting Tone [place]: Relaxed Heart Rate FHR Baseline Rate: 145 Monitor Mode: External US FHR Baseline Changes: No Baseline Change Variability: Moderate 6-25 bpm Accelerations: 15X15 Decelerations: None Category: Category I Datetime: 08/27/2016 21:20 Stage of : OB Triage Assessment Type: Triage Time of Arrival: 08/27/2016 21:12 EGA: 35.0 Arrived By: Wheelchair Arrived From: Home Chief Complaint: DFM/ ROM Movement: Present Rupture of Membranes: Unsure Vaginal Bleeding: None Vaginal Discharge: Present Recent Sexual Intercouse: Denies Abdominal Trauma: Not Applicable Patient Complaints: None Time Provider Notified: 08/27/2016 23:00 Provider Notified: DR CARMONA Initial Plan: CALL COTY LINARES Maternal Assessment Level of Consciousness: Fully Conscious DTR's/Clonus: DTRs 2+; No Clonus Headache: Denies Blurred Vision: No Respiratory Effort: Unlabored; Regular Rhythm; Equal Expansion Breath Sounds, Left: Clear and Equal Breath Sounds, Right: Clear and Equal Nausea/Vomiting: Denies RUQ Epigastric Pain: Denies Lower Extremities Edema: None Degree: None Upper Extremities Edema: None Degree: None Facial Edema: None Temperature Route: Oral Fall Risk Assessment History of Falling: (0) No Secondary Diagnosis: (0) No Ambulatory Aid: (0) Bedrest/Nurse Assist IV Therapy: (0) No Gait: (0) Normal/Bedrest/Immobile Mental Status: (0) Oriented to Own Ability Fall Score: 0 Fall Risk Score Definition: No Risk: No action required Monitor Mode: External Monitor Mode: External US Pain Assessment Pain Scale: 0 Datetime: 08/19/2016 19:00 Labor Evaluation Frequency: 0 Monitor Mode: External Pattern: Normal: <= 5 Contractions in 10 Minutes Resting Tone [place]: Relaxed Heart Rate FHR Baseline Rate: 130 Monitor Mode: External US FHR Baseline Changes: No Baseline Change Variability: Moderate 6-25 bpm Accelerations: 15X15 Decelerations: None Category: Category I Datetime: 08/19/2016 18:00 Labor Evaluation Frequency: IRRIT Monitor Mode: External Pattern: Normal: <= 5 Contractions in 10 Minutes Resting Tone [place]: Relaxed Heart Rate FHR Baseline Rate: 140 Monitor Mode: External US FHR Baseline Changes: No Baseline Change Variability: Moderate 6-25 bpm Accelerations: 15X15 Decelerations: None Category: Category I Datetime: 08/19/2016 17:00 Labor Evaluation Frequency: IRRIT Monitor Mode: External Pattern: Normal: <= 5 Contractions in 10 Minutes Resting Tone [place]: Relaxed Heart Rate FHR Baseline Rate: 140 Monitor Mode: External US FHR Baseline Changes: No Baseline Change Variability: Moderate 6-25 bpm Accelerations: 15X15 Decelerations: None Category: Category I Datetime: 08/19/2016 16:00 Labor Evaluation Frequency: 0 Monitor Mode: External Pattern: Normal: <= 5 Contractions in 10 Minutes Resting Tone [place]: Relaxed Heart Rate FHR Baseline Rate: 140 Monitor Mode: External US FHR Baseline Changes: No Baseline Change Variability: Moderate 6-25 bpm Accelerations: 15X15 Decelerations: None Category: Category I Datetime: 08/19/2016 15:09 Bedside Blood Glucose: 135 Datetime: 08/19/2016 15:00 Labor Evaluation Frequency: IRRIT Monitor Mode: External Pattern: Normal: <= 5 Contractions in 10 Minutes Resting Tone [place]: Relaxed Heart Rate FHR Baseline Rate: 140 Monitor Mode: External US FHR Baseline Changes: No Baseline Change Variability: Moderate 6-25 bpm Accelerations: 15X15 Decelerations: None Category: Category I Datetime: 08/19/2016 14:00 Labor Evaluation Frequency: 140 Monitor Mode: External Pattern: Normal: <= 5 Contractions in 10 Minutes Resting Tone [place]: Relaxed Heart Rate FHR Baseline Rate: 140 Monitor Mode: External US FHR Baseline Changes: No Baseline Change Variability: Moderate 6-25 bpm Accelerations: 15X15 Decelerations: None Category: Category I Datetime: 08/19/2016 13:00 Labor Evaluation Frequency: 0 Monitor Mode: External Pattern: Normal: <= 5 Contractions in 10 Minutes Resting Tone [place]: Relaxed Heart Rate FHR Baseline Rate: 130 Monitor Mode: External US FHR Baseline Changes: No Baseline Change Variability: Moderate 6-25 bpm Accelerations: 15X15 Decelerations: None Category: Category I Datetime: 08/19/2016 11:00 Bedside Blood Glucose: 103 Datetime: 08/19/2016 10:00 Labor Evaluation Frequency: 0 Monitor Mode: External Pattern: Normal: <= 5 Contractions in 10 Minutes Resting Tone [place]: Relaxed Heart Rate FHR Baseline Rate: 135 Monitor Mode: External US FHR Baseline Changes: No Baseline Change Variability: Moderate 6-25 bpm Accelerations: 15X15 Decelerations: None Category: Category I Datetime: 08/19/2016 09:00 Labor Evaluation Frequency: 0 Monitor Mode: External Pattern: Normal: <= 5 Contractions in 10 Minutes Resting Tone [place]: Relaxed Heart Rate FHR Baseline Rate: 130 Monitor Mode: External US FHR Baseline Changes: No Baseline Change Variability: Moderate 6-25 bpm Accelerations: 15X15 Decelerations: None Category: Category I Datetime: 08/19/2016 07:19 Temperature Route: Oral Bedside Blood Glucose: 115 Labor Evaluation Frequency: 0 Monitor Mode: External Pattern: Normal: <= 5 Contractions in 10 Minutes Resting Tone [place]: Relaxed Heart Rate FHR Baseline Rate: 145 Monitor Mode: External US FHR Baseline Changes: No Baseline Change Variability: Moderate 6-25 bpm Accelerations: 15X15 Decelerations: None Category: Category I Datetime: 08/19/2016 07:15 Assessment Type: Ongoing Assessment Maternal Assessment Level of Consciousness: Fully Conscious DTR's/Clonus: DTRs 2+; No Clonus Headache: Denies Blurred Vision: No Respiratory Effort: Unlabored; Regular Rhythm; Equal Expansion Breath Sounds, Left: Clear and Equal Breath Sounds, Right: Clear and Equal Nausea/Vomiting: Denies RUQ Epigastric Pain: Denies Lower Extremities Edema: None Degree: None Upper Extremities Edema: None Degree: None Facial Edema: None Fall Risk Assessment History of Falling: (0) No Secondary Diagnosis: (0) No Ambulatory Aid: (0) Bedrest/Nurse Assist IV Therapy: (0) No Gait: (0) Normal/Bedrest/Immobile Mental Status: (0) Oriented to Own Ability Fall Score: 0 Fall Risk Score Definition: No Risk: No action required Datetime: 08/19/2016 07:00 Labor Evaluation Frequency: 0 Monitor Mode: External Resting Tone [place]: Relaxed Heart Rate FHR Baseline Rate: 150 Monitor Mode: External US Variability: Moderate 6-25 bpm Accelerations: 15X15 Decelerations: None Category: Category I Pain Presence: None/Denies Pain Type: N/A Datetime: 08/19/2016 06:09 Stage of : Antepartum Maternal Assessment Level of Consciousness: Fully Conscious DTR's/Clonus: DTRs 2+ Headache: Denies Blurred Vision: No Datetime: 08/19/2016 06:00 Labor Evaluation Frequency: 0 Monitor Mode: External Resting Tone [place]: Relaxed Heart Rate FHR Baseline Rate: 135 Monitor Mode: External US Variability: Moderate 6-25 bpm Accelerations: 15X15 Decelerations: None Category: Category I Pain Presence: None/Denies Pain Type: N/A Datetime: 08/19/2016 05:00 Labor Evaluation Frequency: 0 Monitor Mode: External Resting Tone [place]: Relaxed Heart Rate FHR Baseline Rate: 135 Monitor Mode: External US Variability: Moderate 6-25 bpm Accelerations: 15X15 Decelerations: None Category: Category I Comments: loss of contact due to maternal movements. Datetime: 08/19/2016 03:58 Labor Evaluation Frequency: 0 Monitor Mode: External Resting Tone [place]: Relaxed Heart Rate FHR Baseline Rate: 135 Monitor Mode: External US Variability: Moderate 6-25 bpm Accelerations: 15X15 Decelerations: None Category: Category I Datetime: 08/19/2016 03:00 Labor Evaluation Frequency: 0 Monitor Mode: External Resting Tone [place]: Relaxed Heart Rate FHR Baseline Rate: 140 Monitor Mode: External US Variability: Moderate 6-25 bpm Accelerations: 15X15 Decelerations: None Category: Category I Pain Presence: None/Denies Datetime: 08/19/2016 02:00 Labor Evaluation Frequency: 0 Monitor Mode: External Resting Tone [place]: Relaxed Heart Rate FHR Baseline Rate: 150 Monitor Mode: External US Variability: Moderate 6-25 bpm Accelerations: 15X15 Decelerations: None Category: Category I Pain Presence: None/Denies Datetime: 08/19/2016 01:00 Labor Evaluation Frequency: 0 Monitor Mode: External Resting Tone [place]: Relaxed Heart Rate FHR Baseline Rate: 140 Monitor Mode: External US Variability: Moderate 6-25 bpm Accelerations: 15X15 Decelerations: None Category: Category I Pain Presence: None/Denies Pain Type: N/A Datetime: 08/19/2016 00:00 Labor Evaluation Frequency: 0 Monitor Mode: External Resting Tone [place]: Relaxed Heart Rate FHR Baseline Rate: 140 Monitor Mode: External US Variability: Moderate 6-25 bpm Accelerations: 15X15 Decelerations: None Category: Category I Pain Presence: None/Denies Datetime: 08/18/2016 23:00 Labor Evaluation Frequency: 0 Monitor Mode: External Duration (sec)2399: DENIES Resting Tone [place]: Relaxed Heart Rate FHR Baseline Rate: 140 Monitor Mode: External US Variability: Moderate 6-25 bpm Accelerations: 15X15 Decelerations: None Category: Category I Pain Presence: None/Denies Pain Type: N/A Datetime: 08/18/2016 22:00 Labor Evaluation Frequency: 0 Monitor Mode: External Duration (sec)2399: DENIES Resting Tone [place]: Relaxed Heart Rate FHR Baseline Rate: 140 Monitor Mode: External US Variability: Moderate 6-25 bpm Accelerations: 15X15 Decelerations: None Category: Category I Pain Presence: None/Denies Pain Type: N/A Datetime: 08/18/2016 21:00 Labor Evaluation Frequency: 0 Monitor Mode: External Resting Tone [place]: Relaxed Heart Rate FHR Baseline Rate: 150 Monitor Mode: External US Variability: Moderate 6-25 bpm Accelerations: 15X15 Decelerations: None Category: Category I Pain Presence: None/Denies Pain Type: N/A Datetime: 08/18/2016 20:00 Labor Evaluation Frequency: 0 Monitor Mode: External Duration (sec)2399: DENIES Resting Tone [place]: Relaxed Contraction Comments: SOME IRRITABILITY NOTED. Heart Rate FHR Baseline Rate: 145 Monitor Mode: External US Variability: Moderate 6-25 bpm Accelerations: 15X15 Decelerations: None Category: Category I Pain Presence: None/Denies Pain Type: N/A Datetime: 08/18/2016 19:17 Stage of : Antepartum Assessment Type: Ongoing Assessment Maternal Assessment Level of Consciousness: Fully Conscious DTR's/Clonus: DTRs 2+; No Clonus Headache: Denies Blurred Vision: No Respiratory Effort: Unlabored; Regular Rhythm; Equal Expansion Breath Sounds, Left: Clear and Equal Breath Sounds, Right: Clear and Equal Nausea/Vomiting: Denies RUQ Epigastric Pain: Denies Lower Extremities Edema: None Degree: None Upper Extremities Edema: None Degree: None Facial Edema: None Temperature Route: Oral Fall Risk Assessment History of Falling: (0) No Secondary Diagnosis: (0) No Ambulatory Aid: (0) Bedrest/Nurse Assist IV Therapy: (0) No Gait: (0) Normal/Bedrest/Immobile Mental Status: (0) Oriented to Own Ability Fall Score: 0 Fall Risk Score Definition: No Risk: No action required Pain Presence: None/Denies Pain Type: N/A Datetime: 08/18/2016 19:00 Labor Evaluation Frequency: 0 Monitor Mode: External Resting Tone [place]: Relaxed Heart Rate FHR Baseline Rate: 140 Monitor Mode: External US FHR Baseline Changes: No Baseline Change Variability: Moderate 6-25 bpm Accelerations: 15X15 Decelerations: None Category: Category I Datetime: 08/18/2016 18:00 Labor Evaluation Frequency: 0 Monitor Mode: External Resting Tone [place]: Relaxed Heart Rate FHR Baseline Rate: 150 Monitor Mode: External US FHR Baseline Changes: No Baseline Change Variability: Moderate 6-25 bpm Accelerations: 15X15 Decelerations: None Category: Category I Pain Assessment Pain Scale: 0 Pain Presence: None/Denies Pain Type: N/A Datetime: 08/18/2016 17:00 Labor Evaluation Frequency: 0 Monitor Mode: External Resting Tone [place]: Relaxed Heart Rate FHR Baseline Rate: 155 Monitor Mode: External US FHR Baseline Changes: No Baseline Change Variability: Moderate 6-25 bpm Accelerations: 15X15 Decelerations: None Category: Category I Pain Assessment Pain Scale: 3 Pain Presence: Constant Pain Type: Ache Pain Location: Back Pain Goal: 9 Pain Relief Measures: Comfort Measures Datetime: 08/18/2016 16:00 Labor Evaluation Frequency: 0 Monitor Mode: External Resting Tone [place]: Relaxed Heart Rate FHR Baseline Rate: 140 Monitor Mode: External US FHR Baseline Changes: No Baseline Change Variability: Moderate 6-25 bpm Accelerations: 15X15 Decelerations: None Category: Category I Pain Assessment Pain Scale: 0 Pain Presence: None/Denies Pain Type: N/A Datetime: 08/18/2016 15:00 Labor Evaluation Frequency: 0 Monitor Mode: External Resting Tone [place]: Relaxed Heart Rate FHR Baseline Rate: 140 Monitor Mode: External US FHR Baseline Changes: No Baseline Change Variability: Moderate 6-25 bpm Accelerations: 15X15 Decelerations: None Category: Category I Pain Assessment Pain Scale: 3 Pain Presence: Intermittent Pain Type: Cramping Pain Location: Back Datetime: 08/18/2016 14:00 Labor Evaluation Frequency: 0 Monitor Mode: External Resting Tone [place]: Relaxed Heart Rate FHR Baseline Rate: 150 Monitor Mode: External US FHR Baseline Changes: No Baseline Change Variability: Moderate 6-25 bpm Accelerations: 15X15 Decelerations: None Category: Category I Pain Assessment Pain Scale: 3 Pain Presence: Intermittent Pain Type: Cramping Datetime: 08/18/2016 13:00 Labor Evaluation Frequency: 0 Monitor Mode: External Resting Tone [place]: Relaxed Heart Rate FHR Baseline Rate: 145 Monitor Mode: External US FHR Baseline Changes: No Baseline Change Variability: Moderate 6-25 bpm Accelerations: 15X15 Datetime: 08/18/2016 12:05 Stage of : Antepartum Datetime: 08/18/2016 12:00 Labor Evaluation Frequency: x1 Monitor Mode: External Duration (sec)2399: 60 Quality: Mild Resting Tone [place]: Relaxed Heart Rate FHR Baseline Rate: 145 Monitor Mode: External US FHR Baseline Changes: No Baseline Change Variability: Moderate 6-25 bpm Accelerations: 15X15 Decelerations: None Category: Category I Datetime: 08/18/2016 11:51 Stage of : Antepartum Temperature Route: Oral Datetime: 08/18/2016 11:34 Bedside Blood Glucose: 83 (Annotations: 2 hour pp) Datetime: 08/18/2016 11:00 Labor Evaluation Frequency: x1 Monitor Mode: External Duration (sec)2399: 50 Quality: Mild Resting Tone [place]: Relaxed Heart Rate FHR Baseline Rate: 135 Monitor Mode: External US FHR Baseline Changes: No Baseline Change Variability: Moderate 6-25 bpm Accelerations: 15X15 Decelerations: None Category: Category I Datetime: 08/18/2016 10:00 Labor Evaluation Frequency: 0 Monitor Mode: External Resting Tone [place]: Relaxed Heart Rate FHR Baseline Rate: 135 Monitor Mode: External US FHR Baseline Changes: No Baseline Change Variability: Moderate 6-25 bpm Accelerations: 15X15 Decelerations: None Category: Category I Pain Assessment Pain Scale: 4 Pain Presence: Constant Pain Type: Ache Pain Location: Back Pain Relief Measures: Comfort Measures Datetime: 08/18/2016 09:00 Labor Evaluation Frequency: irritability Monitor Mode: External Duration (sec)2399: 20 Quality: Mild Resting Tone [place]: Relaxed Heart Rate FHR Baseline Rate: 135 Monitor Mode: External US FHR Baseline Changes: No Baseline Change Variability: Moderate 6-25 bpm Accelerations: 15X15 Decelerations: None Category: Category I Pain Presence: Constant Pain Type: Ache Pain Location: Back Pain Relief Measures: Comfort Measures Datetime: 08/18/2016 08:00 Maternal Assessment Level of Consciousness: Fully Conscious DTR's/Clonus: DTRs 2+ Headache: Denies Blurred Vision: No Respiratory Effort: Unlabored Breath Sounds, Left: Clear and Equal Breath Sounds, Right: Clear and Equal Nausea/Vomiting: Denies RUQ Epigastric Pain: Denies Facial Edema: None Labor Evaluation Frequency: irritability Monitor Mode: External Duration (sec)2399: 10-20 Quality: Mild Resting Tone [place]: Relaxed Heart Rate FHR Baseline Rate: 130 Monitor Mode: External US FHR Baseline Changes: No Baseline Change Variability: Moderate 6-25 bpm Accelerations: 15X15 Decelerations: None Category: Category I Pain Assessment Pain Scale: 4 Pain Presence: Constant Pain Type: Ache Pain Location: Abdomen Datetime: 08/18/2016 07:44 Stage of : Antepartum Assessment Type: Ongoing Assessment Maternal Assessment Level of Consciousness: Fully Conscious DTR's/Clonus: DTRs 2+; No Clonus Headache: Denies Blurred Vision: No Respiratory Effort: Unlabored; Regular Rhythm; Equal Expansion Breath Sounds, Left: Clear and Equal Breath Sounds, Right: Clear and Equal Nausea/Vomiting: Denies RUQ Epigastric Pain: Denies Lower Extremities Edema: None Degree: None Upper Extremities Edema: None Degree: None Facial Edema: None Temperature Route: Oral Fall Risk Assessment History of Falling: (0) No Secondary Diagnosis: (0) No Ambulatory Aid: (0) Bedrest/Nurse Assist IV Therapy: (0) No Gait: (0) Normal/Bedrest/Immobile Mental Status: (0) Oriented to Own Ability Fall Score: 0 Fall Risk Score Definition: No Risk: No action required Pain Assessment Pain Scale: 4 Pain Presence: Constant Pain Type: Pressure; Ache Pain Location: Back (Annotations: lower back) Pain Relief Measures: Comfort Measures Datetime: 08/18/2016 07:15 Bedside Blood Glucose: 92 (Annotations: FBS) Datetime: 08/18/2016 06:00 Labor Evaluation Frequency: X3 Monitor Mode: External Duration (sec)2399: 40-60 Quality: Mild Resting Tone [place]: Relaxed Heart Rate FHR Baseline Rate: 135 Monitor Mode: External US Variability: Moderate 6-25 bpm Accelerations: 15X15 Decelerations: None Category: Category I Pain Presence: None/Denies Pain Type: N/A Datetime: 08/18/2016 05:00 Labor Evaluation Frequency: x1 Monitor Mode: External Duration (sec)2399: 50 Quality: Mild Resting Tone [place]: Relaxed Heart Rate FHR Baseline Rate: 135 Monitor Mode: External US Variability: Moderate 6-25 bpm Accelerations: 15X15 Decelerations: None Category: Category I Pain Presence: None/Denies Pain Type: N/A Datetime: 08/18/2016 04:00 Labor Evaluation Frequency: x1 Monitor Mode: External Duration (sec)2399: 40 Quality: Mild Resting Tone [place]: Relaxed Heart Rate FHR Baseline Rate: 135 Monitor Mode: External US Variability: Moderate 6-25 bpm Accelerations: 15X15 Decelerations: None Category: Category I Pain Presence: None/Denies Pain Type: N/A Datetime: 08/18/2016 03:00 Labor Evaluation Frequency: 0 Monitor Mode: External Resting Tone [place]: Relaxed Heart Rate FHR Baseline Rate: 135 Comments: LOSS OF CONTACT PT WAS SLEEPING. Datetime: 08/18/2016 02:00 Labor Evaluation Frequency: 0 Monitor Mode: External Duration (sec)2399: denies Resting Tone [place]: Relaxed Heart Rate FHR Baseline Rate: 140 Monitor Mode: External US Variability: Moderate 6-25 bpm Accelerations: 15X15 Decelerations: None Category: Category I Pain Presence: None/Denies Pain Type: N/A Datetime: 08/18/2016 01:00 Labor Evaluation Frequency: 0 Monitor Mode: External Duration (sec)2399: DENIES Resting Tone [place]: Relaxed Heart Rate FHR Baseline Rate: 150 Monitor Mode: External US Variability: Moderate 6-25 bpm Accelerations: 15X15 Decelerations: None Category: Category I Pain Presence: None/Denies Pain Type: N/A Datetime: 08/18/2016 00:00 Labor Evaluation Frequency: X2 Monitor Mode: External Duration (sec)2399: 40 Quality: Mild Resting Tone [place]: Relaxed Heart Rate FHR Baseline Rate: 140 Monitor Mode: External US Variability: Moderate 6-25 bpm Accelerations: 15X15 Decelerations: None Category: Category I Comments: LOSS OF CONTACT DUE TO MATERNAL MOVEMENTS. Pain Presence: None/Denies Pain Type: N/A Datetime: 08/17/2016 23:00 Labor Evaluation Frequency: 0 Monitor Mode: External Duration (sec)2399: DENIES Resting Tone [place]: Relaxed Heart Rate FHR Baseline Rate: 135 Monitor Mode: External US Variability: Moderate 6-25 bpm Accelerations: 15X15 Decelerations: None Category: Category I Comments: LOSS OF CONTACT DUE TO MATERNAL MOVEMENTS. Pain Presence: None/Denies Pain Type: N/A Datetime: 08/17/2016 22:00 Labor Evaluation Frequency: 0 Monitor Mode: External Duration (sec)2399: DENIES Resting Tone [place]: Relaxed Heart Rate FHR Baseline Rate: 140 Monitor Mode: External US Variability: Moderate 6-25 bpm Accelerations: 15X15 Decelerations: None Category: Category I Pain Presence: None/Denies Pain Type: N/A Datetime: 08/17/2016 21:00 Labor Evaluation Frequency: 0 Monitor Mode: External Duration (sec)2399: DENIES Resting Tone [place]: Relaxed Heart Rate FHR Baseline Rate: 140 Monitor Mode: External US Variability: Moderate 6-25 bpm Accelerations: 15X15 Decelerations: None Category: Category I Pain Presence: None/Denies Pain Type: N/A Datetime: 08/17/2016 20:00 Labor Evaluation Frequency: 0 Monitor Mode: External Duration (sec)2399: DENIES Resting Tone [place]: Relaxed Heart Rate FHR Baseline Rate: 140 Monitor Mode: External US Variability: Moderate 6-25 bpm Accelerations: 15X15 Decelerations: None Category: Category I Datetime: 08/17/2016 19:36 Stage of : Antepartum Assessment Type: Ongoing Assessment Maternal Assessment Level of Consciousness: Fully Conscious DTR's/Clonus: DTRs 2+; No Clonus Headache: Denies Blurred Vision: No Respiratory Effort: Unlabored; Regular Rhythm; Equal Expansion Breath Sounds, Left: Clear and Equal Breath Sounds, Right: Clear and Equal Nausea/Vomiting: Denies RUQ Epigastric Pain: Denies Lower Extremities Edema: None Degree: None Upper Extremities Edema: None Degree: None Facial Edema: None Temperature Route: Oral Fall Risk Assessment History of Falling: (0) No Secondary Diagnosis: (0) No Ambulatory Aid: (0) Bedrest/Nurse Assist IV Therapy: (0) No Gait: (0) Normal/Bedrest/Immobile Mental Status: (0) Oriented to Own Ability Fall Score: 0 Fall Risk Score Definition: No Risk: No action required Pain Presence: None/Denies Pain Type: N/A Membrane Status: Intact Datetime: 08/17/2016 19:00 Labor Evaluation Frequency: 0 Monitor Mode: External Resting Tone [place]: Relaxed Heart Rate FHR Baseline Rate: 145 Monitor Mode: External US FHR Baseline Changes: No Baseline Change Variability: Moderate 6-25 bpm Accelerations: 15X15 Decelerations: None Category: Category I Datetime: 08/17/2016 18:00 Labor Evaluation Frequency: 0 Monitor Mode: External Resting Tone [place]: Relaxed Heart Rate FHR Baseline Rate: 145 Monitor Mode: External US FHR Baseline Changes: No Baseline Change Variability: Moderate 6-25 bpm Accelerations: 15X15 Decelerations: None Category: Category I Pain Assessment Pain Scale: 0 Pain Presence: None/Denies Datetime: 08/17/2016 17:00 Labor Evaluation Frequency: 0 Monitor Mode: External Resting Tone [place]: Relaxed Heart Rate FHR Baseline Rate: 135 Monitor Mode: External US FHR Baseline Changes: No Baseline Change Datetime: 08/17/2016 16:00 Labor Evaluation Frequency: 0 Monitor Mode: External Resting Tone [place]: Relaxed Heart Rate FHR Baseline Rate: 140 Monitor Mode: External US FHR Baseline Changes: No Baseline Change Variability: Moderate 6-25 bpm Accelerations: 15X15 Decelerations: None Pain Goal: 0 Pain Relief Measures: Pain Medication Given Datetime: 08/17/2016 15:53 Stage of : Antepartum Temperature Route: Oral Pain Assessment Pain Scale: 0 Pain Goal: 9 Pain Relief Measures: Pain Medication Given Datetime: 08/17/2016 15:00 Labor Evaluation Frequency: 0 Labor Evaluation Frequency: 0 Monitor Mode: External Monitor Mode: External Pattern: Normal: <= 5 Contractions in 10 Minutes Resting Tone [place]: Relaxed Resting Tone [place]: Relaxed Heart Rate FHR Baseline Rate: 140 Heart Rate FHR Baseline Rate: 140 Monitor Mode: External US Monitor Mode: External US FHR Baseline Changes: No Baseline Change FHR Baseline Changes: No Baseline Change Variability: Moderate 6-25 bpm Variability: Moderate 6-25 bpm Accelerations: 15X15 Accelerations: 15X15 Decelerations: None Decelerations: None Category: Category I Category: Category I Pain Assessment Pain Scale: 2 Pain Presence: Constant Pain Type: Ache Pain Location: Head Datetime: 08/17/2016 14:00 Labor Evaluation Frequency: 0 Monitor Mode: External Pattern: Normal: <= 5 Contractions in 10 Minutes Resting Tone [place]: Relaxed Heart Rate FHR Baseline Rate: 140 Monitor Mode: External US FHR Baseline Changes: No Baseline Change Variability: Moderate 6-25 bpm Accelerations: 15X15 Decelerations: None Category: Category I Datetime: 08/17/2016 13:00 Labor Evaluation Frequency: 0 Labor Evaluation Frequency: 0 Monitor Mode: External Monitor Mode: External Pattern: Normal: <= 5 Contractions in 10 Minutes Resting Tone [place]: Relaxed Resting Tone [place]: Relaxed Heart Rate FHR Baseline Rate: 130 Heart Rate FHR Baseline Rate: 135 Monitor Mode: External US Monitor Mode: External US FHR Baseline Changes: No Baseline Change FHR Baseline Changes: No Baseline Change Variability: Moderate 6-25 bpm Variability: Moderate 6-25 bpm Accelerations: 15X15 Accelerations: 15X15 Decelerations: None Decelerations: None Category: Category I Pain Assessment Pain Scale: 5 Pain Presence: Constant Pain Type: Ache Pain Location: Head Pain Relief Measures: Pain Medication Given Datetime: 08/17/2016 12:00 Labor Evaluation Frequency: 0 Labor Evaluation Frequency: x2 Monitor Mode: External Monitor Mode: External Duration (sec)2399: 60 Quality: Mild Pattern: Normal: <= 5 Contractions in 10 Minutes Resting Tone [place]: Relaxed Resting Tone [place]: Relaxed Heart Rate FHR Baseline Rate: 130 Heart Rate FHR Baseline Rate: 135 Monitor Mode: External US Monitor Mode: External US FHR Baseline Changes: No Baseline Change FHR Baseline Changes: No Baseline Change Variability: Moderate 6-25 bpm Variability: Moderate 6-25 bpm Accelerations: 15X15 Accelerations: 15X15 Decelerations: None Decelerations: None Category: Category I Datetime: 08/17/2016 11:00 Labor Evaluation Frequency: 0 Labor Evaluation Frequency: x2 Monitor Mode: External Monitor Mode: External Duration (sec)2399: 60 Quality: Mild Pattern: Normal: <= 5 Contractions in 10 Minutes Resting Tone [place]: Relaxed Resting Tone [place]: Relaxed Heart Rate FHR Baseline Rate: 140 Heart Rate FHR Baseline Rate: 135 Monitor Mode: External US Monitor Mode: External US FHR Baseline Changes: No Baseline Change FHR Baseline Changes: No Baseline Change Variability: Moderate 6-25 bpm Variability: Moderate 6-25 bpm Accelerations: 15X15 Accelerations: 15X15 Decelerations: None Decelerations: None Category: Category I Category: Category I Datetime: 08/17/2016 10:56 Stage of : Antepartum Bedside Blood Glucose: 107 (Annotations: 2 hour PP) Datetime: 08/17/2016 10:25 Stage of : Antepartum Datetime: 08/17/2016 10:10 Stage of : Antepartum Datetime: 08/17/2016 10:00 Labor Evaluation Frequency: 0 Monitor Mode: External Pattern: Normal: <= 5 Contractions in 10 Minutes Resting Tone [place]: Relaxed Heart Rate FHR Baseline Rate: 140 Monitor Mode: External US Monitor Mode: External US FHR Baseline Changes: No Baseline Change FHR Baseline Changes: No Baseline Change Variability: Moderate 6-25 bpm Variability: Moderate 6-25 bpm Accelerations: 15X15 Accelerations: 15X15 Decelerations: None Decelerations: None Category: Category I Category: Category I Pain Assessment Pain Scale: 7 Pain Presence: Constant Pain Type: Ache Pain Location: Head Pain Goal: 9 Pain Relief Measures: Comfort Measures Datetime: 08/17/2016 09:00 Maternal Assessment Level of Consciousness: Fully Conscious DTR's/Clonus: DTRs 2+ Headache: Generalized Blurred Vision: No Nausea/Vomiting: Denies RUQ Epigastric Pain: Denies Facial Edema: None Labor Evaluation Frequency: 0 Monitor Mode: External Resting Tone [place]: Relaxed Heart Rate FHR Baseline Rate: 140 Monitor Mode: External US FHR Baseline Changes: No Baseline Change Variability: Moderate 6-25 bpm Accelerations: 15X15 Decelerations: None Category: Category I Pain Presence: Constant Pain Type: Ache Pain Location: Head Pain Relief Measures: Comfort Measures Pain Assessment Comments: The patient says she has migraine. Datetime: 08/17/2016 08:09 Stage of : Antepartum Bedside Blood Glucose: 98 (Annotations: FBS) Datetime: 08/17/2016 08:00 Labor Evaluation Frequency: 0 Monitor Mode: External Resting Tone [place]: Relaxed Heart Rate FHR Baseline Rate: 135 Monitor Mode: External US FHR Baseline Changes: No Baseline Change Variability: Minimal - Undetectable to <=5 bpm Decelerations: None Pain Assessment Pain Scale: 7 Pain Presence: Constant Pain Type: Sharp; Ache Pain Location: Head Pain Goal: 9 Pain Relief Measures: Comfort Measures Pain Assessment Comments: The patient says she has migraine on Datetime: 08/17/2016 07:47 Stage of : Antepartum Temperature Route: Oral Datetime: 08/17/2016 07:40 Assessment Type: Ongoing Assessment Maternal Assessment Level of Consciousness: Fully Conscious DTR's/Clonus: DTRs 2+; No Clonus Headache: Denies Blurred Vision: No Respiratory Effort: Unlabored; Regular Rhythm; Equal Expansion Breath Sounds, Left: Clear and Equal Breath Sounds, Right: Clear and Equal Nausea/Vomiting: Denies RUQ Epigastric Pain: Denies Lower Extremities Edema: None Upper Extremities Edema: None Facial Edema: None Fall Risk Assessment History of Falling: (0) No Secondary Diagnosis: (0) No Ambulatory Aid: (0) Bedrest/Nurse Assist IV Therapy: (20) Yes Gait: (0) Normal/Bedrest/Immobile Mental Status: (0) Oriented to Own Ability Fall Score: 20 Fall Risk Score Definition: No Risk: No action required Datetime: 08/17/2016 07:00 Labor Evaluation Frequency: 0 Monitor Mode: External Heart Rate FHR Baseline Rate: 140 Monitor Mode: External US FHR Baseline Changes: No Baseline Change Variability: Moderate 6-25 bpm Accelerations: 15X15 Decelerations: None Category: Category I Datetime: 08/17/2016 06:00 Labor Evaluation Frequency: 0 Monitor Mode: External Heart Rate FHR Baseline Rate: 135 Monitor Mode: External US FHR Baseline Changes: No Baseline Change Variability: Moderate 6-25 bpm Accelerations: 15X15 Decelerations: None Category: Category I Datetime: 08/17/2016 05:00 Labor Evaluation Frequency: 0 Monitor Mode: External Heart Rate FHR Baseline Rate: 135 Monitor Mode: External US FHR Baseline Changes: No Baseline Change Variability: Moderate 6-25 bpm Accelerations: 15X15 Decelerations: None Category: Category I Datetime: 08/17/2016 04:15 Maternal Assessment Level of Consciousness: Fully Conscious DTR's/Clonus: DTRs 2+ Breath Sounds, Left: Clear and Equal Breath Sounds, Right: Clear and Equal Nausea/Vomiting: Denies Temperature Route: Oral Datetime: 08/17/2016 04:00 Labor Evaluation Frequency: 0 Monitor Mode: External Heart Rate FHR Baseline Rate: 135 Monitor Mode: External US FHR Baseline Changes: No Baseline Change Variability: Moderate 6-25 bpm Accelerations: 15X15 Decelerations: None Category: Category I Datetime: 08/17/2016 03:00 Labor Evaluation Frequency: X1 Monitor Mode: External Duration (sec)2399: 60 Quality: Mild Resting Tone [place]: Relaxed Heart Rate FHR Baseline Rate: 140 Monitor Mode: External US FHR Baseline Changes: No Baseline Change Variability: Moderate 6-25 bpm Accelerations: 15X15 Decelerations: None Category: Category I Datetime: 08/17/2016 02:00 Labor Evaluation Frequency: X2 Monitor Mode: External Duration (sec)2399: 60-80 Quality: Mild Resting Tone [place]: Relaxed Heart Rate FHR Baseline Rate: 130 Monitor Mode: External US FHR Baseline Changes: No Baseline Change Variability: Moderate 6-25 bpm Accelerations: 15X15 Decelerations: None Category: Category I Datetime: 08/17/2016 01:00 Labor Evaluation Frequency: 0 Monitor Mode: External Heart Rate FHR Baseline Rate: 130 Monitor Mode: External US FHR Baseline Changes: No Baseline Change Variability: Moderate 6-25 bpm Accelerations: 15X15 Category: Category I Datetime: 08/17/2016 00:00 Labor Evaluation Frequency: 0 Monitor Mode: External Heart Rate FHR Baseline Rate: 130 Monitor Mode: External US FHR Baseline Changes: No Baseline Change Variability: Moderate 6-25 bpm Accelerations: 15X15 Decelerations: None Category: Category I Datetime: 08/16/2016 23:37 Maternal Assessment Level of Consciousness: Fully Conscious DTR's/Clonus: DTRs 2+ Breath Sounds, Left: Clear and Equal Breath Sounds, Right: Clear and Equal Temperature Route: Oral Pain Assessment Pain Scale: 3 Pain Relief Measures: Comfort Measures Datetime: 08/16/2016 23:00 Labor Evaluation Frequency: 0 Monitor Mode: External Heart Rate FHR Baseline Rate: 135 Monitor Mode: External US FHR Baseline Changes: No Baseline Change Variability: Moderate 6-25 bpm Accelerations: 15X15 Decelerations: None Category: Category I Datetime: 08/16/2016 22:19 Maternal Assessment Level of Consciousness: Fully Conscious DTR's/Clonus: DTRs 2+ Datetime: 08/16/2016 22:00 Labor Evaluation Frequency: 0 Monitor Mode: External Heart Rate FHR Baseline Rate: 130 Monitor Mode: External US FHR Baseline Changes: No Baseline Change Variability: Moderate 6-25 bpm Accelerations: 15X15 Decelerations: None Category: Category I Pain Assessment Pain Scale: 5 Pain Presence: Constant Pain Type: Ache Pain Location: Head Pain Relief Measures: Comfort Measures (Annotations: ice pack to back of head) Datetime: 08/16/2016 21:00 Labor Evaluation Frequency: 0 Monitor Mode: External Heart Rate FHR Baseline Rate: 130 Monitor Mode: External US FHR Baseline Changes: No Baseline Change Variability: Moderate 6-25 bpm Accelerations: 15X15 Decelerations: None Category: Category I Datetime: 08/16/2016 20:00 Labor Evaluation Frequency: 0 Monitor Mode: External Heart Rate FHR Baseline Rate: 130 Monitor Mode: External US FHR Baseline Changes: No Baseline Change Variability: Moderate 6-25 bpm Accelerations: 15X15 Decelerations: None Category: Category I Datetime: 08/16/2016 19:53 Comments: SITTING UPRIGHT TALKING TO HER FAMILY MEMBERS Datetime: 08/16/2016 19:49 Temperature Route: Oral Pain Assessment Pain Scale: 6 Pain Presence: Constant Pain Type: Ache Pain Location: Head Pain Relief Measures: Comfort Measures (Annotations: ICE PACK) Datetime: 08/16/2016 19:45 Assessment Type: Ongoing Assessment Maternal Assessment Level of Consciousness: Fully Conscious DTR's/Clonus: DTRs 2+; No Clonus Headache: Denies Blurred Vision: No Respiratory Effort: Unlabored; Regular Rhythm; Equal Expansion Breath Sounds, Left: Clear and Equal Breath Sounds, Right: Clear and Equal Nausea/Vomiting: Denies RUQ Epigastric Pain: Denies Lower Extremities Edema: None Upper Extremities Edema: None Facial Edema: None Fall Risk Assessment History of Falling: (0) No Secondary Diagnosis: (0) No Ambulatory Aid: (0) Bedrest/Nurse Assist IV Therapy: (20) Yes Gait: (0) Normal/Bedrest/Immobile Mental Status: (0) Oriented to Own Ability Fall Score: 20 Fall Risk Score Definition: No Risk: No action required Datetime: 08/16/2016 18:52 Labor Evaluation Frequency: 0 Monitor Mode: External Duration (sec)2399: 0 Pattern: Normal: <= 5 Contractions in 10 Minutes Resting Tone [place]: Relaxed Heart Rate FHR Baseline Rate: 125 Monitor Mode: External US FHR Baseline Changes: No Baseline Change Variability: Moderate 6-25 bpm Accelerations: 15X15 Decelerations: None Category: Category I Datetime: 08/16/2016 18:30 Labor Evaluation Frequency: 0 Monitor Mode: External Duration (sec)2399: 0 Pattern: Normal: <= 5 Contractions in 10 Minutes Resting Tone [place]: Relaxed Heart Rate FHR Baseline Rate: 135 Monitor Mode: External US FHR Baseline Changes: No Baseline Change Variability: Moderate 6-25 bpm Accelerations: 15X15 Decelerations: None Category: Category I Datetime: 08/16/2016 18:01 Labor Evaluation Frequency: 0 Monitor Mode: External Duration (sec)2399: 0 Pattern: Normal: <= 5 Contractions in 10 Minutes Resting Tone [place]: Relaxed Contraction Comments: SOME SCATTERED IRRITABILITY NOTED Heart Rate FHR Baseline Rate: 130 Monitor Mode: External US FHR Baseline Changes: No Baseline Change Variability: Moderate 6-25 bpm Accelerations: 15X15 Decelerations: None Category: Category I Datetime: 08/16/2016 17:43 Pain Assessment Comments: STATES HEADACHE IS GETTING BETTER. WILL CONTINUE TO MONITOR Datetime: 08/16/2016 17:30 Labor Evaluation Frequency: 0 Monitor Mode: External Duration (sec)2399: 0 Pattern: Normal: <= 5 Contractions in 10 Minutes Resting Tone [place]: Relaxed Heart Rate FHR Baseline Rate: 130 Monitor Mode: External US FHR Baseline Changes: No Baseline Change Variability: Moderate 6-25 bpm Accelerations: 15X15 Decelerations: None Category: Category I Datetime: 08/16/2016 17:00 Labor Evaluation Frequency: 0 Monitor Mode: External Duration (sec)2399: 0 Pattern: Normal: <= 5 Contractions in 10 Minutes Resting Tone [place]: Relaxed Heart Rate FHR Baseline Rate: 125 Monitor Mode: External US FHR Baseline Changes: No Baseline Change Variability: Moderate 6-25 bpm Accelerations: 15X15 Decelerations: None Category: Category I Datetime: 08/16/2016 16:33 Labor Evaluation Frequency: 0 Monitor Mode: External Duration (sec)2399: 0 Pattern: Normal: <= 5 Contractions in 10 Minutes Resting Tone [place]: Relaxed Heart Rate FHR Baseline Rate: 125 Monitor Mode: External US FHR Baseline Changes: No Baseline Change Variability: Moderate 6-25 bpm Accelerations: 15X15 Decelerations: None Category: Category I Datetime: 08/16/2016 15:00 Labor Evaluation Frequency: 0 Monitor Mode: External Duration (sec)2399: 0 Pattern: Normal: <= 5 Contractions in 10 Minutes Heart Rate FHR Baseline Rate: 120 Monitor Mode: External US FHR Baseline Changes: No Baseline Change Variability: Moderate 6-25 bpm Accelerations: 15X15 Decelerations: None Category: Category I Datetime: 08/16/2016 14:30 Labor Evaluation Frequency: 0 Monitor Mode: External Duration (sec)2399: 0 Pattern: Normal: <= 5 Contractions in 10 Minutes Resting Tone [place]: Relaxed Heart Rate FHR Baseline Rate: 120 Monitor Mode: External US FHR Baseline Changes: No Baseline Change Variability: Moderate 6-25 bpm Accelerations: 15X15 Decelerations: None Category: Category I Datetime: 08/16/2016 13:58 Maternal Assessment Level of Consciousness: Fully Conscious DTR's/Clonus: DTRs 2+; No Clonus Headache: Occipital Blurred Vision: No Nausea/Vomiting: Denies RUQ Epigastric Pain: Denies Facial Edema: None Labor Evaluation Frequency: 0 Monitor Mode: External Duration (sec)2399: 0 Pattern: Normal: <= 5 Contractions in 10 Minutes Resting Tone [place]: Relaxed Contraction Comments: ABDOMEN SOFT TO PALPATION Heart Rate FHR Baseline Rate: 120 Monitor Mode: External US FHR Baseline Changes: No Baseline Change Variability: Moderate 6-25 bpm Accelerations: 15X15 Decelerations: None Category: Category I Datetime: 08/16/2016 13:30 Labor Evaluation Frequency: 0 Monitor Mode: External Duration (sec)2399: 0 Pattern: Normal: <= 5 Contractions in 10 Minutes Resting Tone [place]: Relaxed Heart Rate FHR Baseline Rate: 120 Monitor Mode: External US FHR Baseline Changes: No Baseline Change Variability: Moderate 6-25 bpm Accelerations: 15X15 Decelerations: None Category: Category I Datetime: 08/16/2016 13:26 Labor Evaluation Frequency: 0 Monitor Mode: External Duration (sec)2399: 0 Pattern: Normal: <= 5 Contractions in 10 Minutes Resting Tone [place]: Relaxed Contraction Comments: ABDOMEN SOFT TO PALPATION Heart Rate FHR Baseline Rate: 125 Monitor Mode: External US FHR Baseline Changes: No Baseline Change Variability: Moderate 6-25 bpm Accelerations: 15X15 Decelerations: None Category: Category I Datetime: 08/16/2016 13:00 Labor Evaluation Frequency: 0 Monitor Mode: External Duration (sec)2399: 0 Pattern: Normal: <= 5 Contractions in 10 Minutes Resting Tone [place]: Relaxed Heart Rate FHR Baseline Rate: 130 Monitor Mode: External US FHR Baseline Changes: No Baseline Change Variability: Moderate 6-25 bpm Accelerations: 15X15 Decelerations: None Category: Category I Datetime: 08/16/2016 12:30 Labor Evaluation Frequency: 0 Monitor Mode: External Duration (sec)2399: 0 Pattern: Normal: <= 5 Contractions in 10 Minutes Resting Tone [place]: Relaxed Heart Rate FHR Baseline Rate: 130 Monitor Mode: External US FHR Baseline Changes: No Baseline Change Variability: Moderate 6-25 bpm Accelerations: 15X15 Decelerations: None Category: Category I Datetime: 08/16/2016 12:00 Maternal Assessment Level of Consciousness: Fully Conscious DTR's/Clonus: DTRs 2+; No Clonus Headache: Denies Blurred Vision: No Nausea/Vomiting: Denies RUQ Epigastric Pain: Denies Facial Edema: None Labor Evaluation Frequency: 0 Monitor Mode: External Duration (sec)2399: 0 Pattern: Normal: <= 5 Contractions in 10 Minutes Resting Tone [place]: Relaxed Heart Rate FHR Baseline Rate: 120 Monitor Mode: External US FHR Baseline Changes: No Baseline Change Variability: Moderate 6-25 bpm Accelerations: 15X15 Category: Category I Datetime: 08/16/2016 11:29 Labor Evaluation Frequency: 0 Monitor Mode: External Duration (sec)2399: 0 Pattern: Normal: <= 5 Contractions in 10 Minutes Resting Tone [place]: Relaxed Heart Rate FHR Baseline Rate: 120 Monitor Mode: External US FHR Baseline Changes: No Baseline Change Variability: Moderate 6-25 bpm Accelerations: 15X15 Decelerations: None Category: Category I Datetime: 08/16/2016 10:58 Labor Evaluation Frequency: 0 Monitor Mode: External Duration (sec)2399: 0 Pattern: Normal: <= 5 Contractions in 10 Minutes Resting Tone [place]: Relaxed Heart Rate FHR Baseline Rate: 125 Monitor Mode: External US FHR Baseline Changes: No Baseline Change Variability: Moderate 6-25 bpm Accelerations: 15X15 Decelerations: None Category: Category I Datetime: 08/16/2016 10:30 Labor Evaluation Frequency: 0 Monitor Mode: External Duration (sec)2399: 0 Pattern: Normal: <= 5 Contractions in 10 Minutes Resting Tone [place]: Relaxed Heart Rate FHR Baseline Rate: 130 FHR Baseline Changes: No Baseline Change Comments: POOR CONTACT AT TIMES. PT ON SIDE AND WANTS TO SLEEP Datetime: 08/16/2016 10:00 Maternal Assessment Level of Consciousness: Fully Conscious DTR's/Clonus: DTRs 2+ Headache: Denies Blurred Vision: No Nausea/Vomiting: Denies RUQ Epigastric Pain: Denies Facial Edema: None Labor Evaluation Frequency: 0 Monitor Mode: External Duration (sec)2399: 0 Pattern: Normal: <= 5 Contractions in 10 Minutes Contraction Comments: ABDOMEN SOFT TO PALPATION Heart Rate FHR Baseline Rate: 130 Monitor Mode: External US FHR Baseline Changes: No Baseline Change Variability: Moderate 6-25 bpm Accelerations: 15X15 Decelerations: None Category: Category I Datetime: 08/16/2016 09:30 Labor Evaluation Frequency: 0 Monitor Mode: External Duration (sec)2399: 0 Pattern: Normal: <= 5 Contractions in 10 Minutes Resting Tone [place]: Relaxed Contraction Comments: ABDOMEN SOFT TO PALPATION Heart Rate FHR Baseline Rate: 130 Monitor Mode: External US FHR Baseline Changes: No Baseline Change Variability: Moderate 6-25 bpm Accelerations: 15X15 Decelerations: None Category: Category I Pain Presence: None/Denies Pain Type: N/A Pain Assessment Comments: DENIES ANY DISCOMFORT AT THIS TIME Datetime: 08/16/2016 09:00 Labor Evaluation Frequency: 0 Monitor Mode: External Duration (sec)2399: 0 Pattern: Normal: <= 5 Contractions in 10 Minutes Contraction Comments: PT SITTING UP EATING BREAKFAST. SPOUSE AT BEDSIDE Heart Rate FHR Baseline Rate: 130 Monitor Mode: External US FHR Baseline Changes: No Baseline Change Variability: Moderate 6-25 bpm Accelerations: 15X15 Decelerations: None Category: Category I Comments: PT SITTING UP EATING BREAKFAST Datetime: 08/16/2016 08:26 Labor Evaluation Frequency: 0 Monitor Mode: External Duration (sec)2399: 0 Pattern: Normal: <= 5 Contractions in 10 Minutes Resting Tone [place]: Relaxed Contraction Comments: PT DENIES ANY DISCOMFORT Heart Rate FHR Baseline Rate: 130 Monitor Mode: External US FHR Baseline Changes: No Baseline Change Variability: Moderate 6-25 bpm Accelerations: 15X15 Decelerations: None Category: Category I Datetime: 08/16/2016 08:00 Labor Evaluation Frequency: 2 NOTED SINCE 0700 Monitor Mode: External Duration (sec)2399: 50-60 Pattern: Normal: <= 5 Contractions in 10 Minutes Resting Tone [place]: Relaxed Contraction Comments: ABDOMEN SOFT TO PALPATION Heart Rate FHR Baseline Rate: 130 Monitor Mode: External US FHR Baseline Changes: No Baseline Change Variability: Moderate 6-25 bpm Accelerations: 15X15 Decelerations: None Category: Category I Datetime: 08/16/2016 07:37 Pain Assessment Comments: REFUSES TO TAKE TYLENOL AT THIS TIME. STATES THAT SHE NEEDS A CAFENATED DRINK. DIET COKE GIVEN. ICE PACK REMAINS ON Datetime: 08/16/2016 07:32 Assessment Type: Ongoing Assessment Maternal Assessment Level of Consciousness: Fully Conscious DTR's/Clonus: DTRs 2+; No Clonus Headache: Temporal; Bilateral Blurred Vision: No Respiratory Effort: Unlabored; Regular Rhythm; Equal Expansion Breath Sounds, Left: Clear and Equal Breath Sounds, Right: Clear and Equal Nausea/Vomiting: Denies RUQ Epigastric Pain: Denies Lower Extremities Edema: None Degree: None Upper Extremities Edema: None Degree: None Facial Edema: None Fall Risk Assessment History of Falling: (0) No Secondary Diagnosis: (0) No Ambulatory Aid: (0) Bedrest/Nurse Assist IV Therapy: (20) Yes Gait: (0) Normal/Bedrest/Immobile Mental Status: (0) Oriented to Own Ability Fall Score: 20 Fall Risk Score Definition: No Risk: No action required Datetime: 08/16/2016 06:20 Temperature Route: Oral Datetime: 08/16/2016 06:12 Fall Score: 20 Fall Risk Score Definition: No Risk: No action required Datetime: 08/16/2016 06:10 Stage of : Antepartum Datetime: 08/15/2016 22:46 Fall Score: 0 Fall Risk Score Definition: No Risk: No action required Datetime: 08/15/2016 22:43 EGA: 33.2 Datetime: 07/26/2016 08:25 Fall Score: 0 Fall Risk Score Definition: No Risk: No action required Datetime: 07/25/2016 20:02 Fall Score: 20 Fall Risk Score Definition: No Risk: No action required Datetime: 07/24/2016 19:40 Fall Score: 20 Fall Risk Score Definition: No Risk: No action required Datetime: 07/24/2016 07:51 Fall Score: 0 Fall Risk Score Definition: No Risk: No action required Datetime: 07/23/2016 19:32 Fall Score: 0 Fall Risk Score Definition: No Risk: No action required Datetime: 07/22/2016 20:04 Fall Score: 20 Fall Risk Score Definition: No Risk: No action required Datetime: 07/22/2016 07:51 Fall Score: 20 Fall Risk Score Definition: No Risk: No action required Datetime: 07/21/2016 20:15 Fall Score: 20 Fall Risk Score Definition: No Risk: No action required Datetime: 07/21/2016 10:54 Fall Score: 0 Fall Risk Score Definition: No Risk: No action required Datetime: 07/21/2016 10:52 EGA: 29.5
== END 2016-08-28 01:05 | disposition home or self-care (01) ==
LOC: OBT 21:18 → L-D 21:20 → OBT 08-28 01:05
PROVIDERS: ATTEND Obstetrics & Gynecology
DX: O36.8130 Decreased fetal movements, third trimester, not applicable or unspecified (principal); O24.410 Gestational diabetes mellitus in pregnancy, diet controlled; Z3A.35 35 weeks gestation of pregnancy
CPT/HCPCS: 76818; 81001; 84112; 87086; Z7500; G0463

== ENCOUNTER 2016-09-21 02:00 | Inpatient (IN) | END 2016-09-23 21:45 | disposition home or self-care (01) | DRG 765 | DX: O34.211 Maternal care for low transverse scar from previous cesarean delivery (principal); O24.913 Unspecified diabetes mellitus in pregnancy, third trimester; Z30.2 Encounter for sterilization; Z3A.38 38 weeks gestation of pregnancy; Z37.0 Single live birth ==